=== PATIENT | male | born 1960 | race Caucasian/White ===

== ENCOUNTER 2019-02-08 05:57 | Inpatient (IN) | payer BC ==
[2019-02-08] MEDS ORDERED: ALBUTEROL 2.5 MG/3 ML NEB SOL ONE (06:19)
[2019-02-08] MEDS ORDERED: IPRATROPIUM BROM 0.5MG/2.5ML ONE (06:19)
[2019-02-08 06:28] LABS: Absolute Lymphocytes (CBC) 1.3 K/uL (0.7-4.9); Absolute Neutrophil 7.7 K/uL (1.8-8.0); Basophils % 0.7 % (0-1.3); Eosinophils % 1.9 % (0-4.4); Hematocrit 46.9 % (39.6-49.0); Lymphocytes % 12.5 % (15.3-44.8); MPV 9.8 fL (7.6-11.3); Monocytes % 10.1 % (3.3-12.3); RBC Red Blood Cell Count 5.12 M/uL (4.33-5.43)
[2019-02-08] MEDS ORDERED: NA CHLORIDE 0.9% 1,000 ML ONE (06:37)
[2019-02-08 06:46] LABS: Protime INR 1.11
[2019-02-08 06:50] LABS: ALT/SGPT 30 U/L (12-78); AST/SGOT 15 U/L (15-37); Albumin 3.5 g/dL (3.4-5.0); Alkaline Phosphatase 119 U/L (45-117); BUN Blood Urea Nitrogen 11 mg/dL (7-18); Bicarbonate 30 mmol/L (21-32); Bilirubin Direct 0.2 mg/dL (0-0.2); Bilirubin Total 0.7 mg/dL (0.2-1.0); CKMB Creatine Kinase MB 1.5 ng/mL (0.3-3.6); Creatine Phosphokinase 100 U/L (39-308); Glucose Level 270 mg/dL (74-106); Lipase 77 U/L (73-393); Potassium 4.2 mmol/L (3.5-5.1); Protein, Total 7.6 g/dL (6.4-8.2); Sodium Level 136 mmol/L (136-145); Troponin (Emerg Dept Use Only) < 0.02 ng/mL (0.0-0.045)
[2019-02-08] MEDS ORDERED: METHYLPREDNISOLONE 125 MG INJ ONE (07:36)
--- NOTE | 2019-02-08 08:33 | RAD REPORT ---
EXAM DESCRIPTION: Mirela Single View02/08/2019 6:26 am CLINICAL HISTORY: Cough COMPARISON: 2014 FINDINGS: Left upper lobe opacity suspected. The remainder of the lungs appear clear of acute infil trate The heart is normal size IMPRESSION: Left upper lobe opacity may represent pneumonia. This should be followed until it is elinor ar to help exclude a post obstructive process/underlying mass
--- NOTE | 2019-02-08 08:57 | ER ---
Nurse's Notes [facility] Name: Min Aly Age: 58 yrs Sex: Male : 1960 Arrival Date: 02/08/2019 Time: 05:58 Bed 5 Private MD: Diagnosis: Pneumonia, unspecified organism;Chronic obstructive pulmonary disease with (acute) exacerbation Presentation: 02/08 06:20 Presenting complaint: Patient states: SOB, productive cough since Friday. Transition of ak1 care: patient was not received from another setting of care. Onset of symptoms is unknown. Risk Assessment: Do you want to hurt yourself or someone else? Patient reports no desire to harm self or others. Care prior to arrival: None. 06:20 Method Of Arrival: Wheelchair ak1 06:20 Acuity: MARYBETH 2 ak1 Triage Assessment: 06:22 General: Appears distressed, uncomfortable, obese, Behavior is cooperative. Pain: ak1 Denies pain. EENT: No signs and/or symptoms were reported regarding the EENT system. Neuro: No deficits noted. Cardiovascular: Rhythm is sinus tachycardia. Respiratory: Reports shortness of breath cough that is productive. Respiratory: Onset: The symptoms/episode began/occurred Friday, the patient has mild shortness of breath. GI: No signs and/or symptoms were reported involving the gastrointestinal system. : No signs and/or symptoms were reported regarding the genitourinary system. Derm: No signs and/or symptoms reported regarding the dermatologic system. Musculoskeletal: No signs and/or symptoms reported regarding the musculoskeletal system. Historical: - Allergies: 06:22 No Known Allergies; ak1 - Home Meds: 06:22 Humira subcutaneous subcutaneous [Active]; Metformin Oral [Active]; Wellbutrin Oral ak1 [Active]; spariva [Active]; - PMHx: 06:22 COPD; Diabetes - NIDDM; ak1 - PSHx: 06:22 leg sx; ak1 - Immunization history:: Adult Immunizations unknown. - Social history:: Smoking status: Patient uses tobacco products, smokes one pack cigarettes per day. - Ebola Screening: : No symptoms or risks identified at this time. Screenin:39 Abuse screen: Denies threats or abuse. Denies injuries from another. Nutritional sv screening: No deficits noted. Tuberculosis screening: No symptoms or risk factors identified. Fall Risk None identified. Assessment: 07:15 General: Appears in no apparent distress. Behavior is calm, cooperative. Pain: Denies hb pain. Neuro: Level of Consciousness is awake, alert, obeys commands, Oriented to person, place, time, situation. Cardiovascular: Heart tones S1 S2 present Capillary refill < 3 seconds Patient's skin is warm and dry. Respiratory: Airway is patent Trachea midline Respiratory effort is even, Respiratory pattern is regular, symmetrical, on BIPAP Breath sounds are diminished bilaterally. GI: No signs and/or symptoms were reported involving the gastrointestinal system. : No signs and/or symptoms were reported regarding the genitourinary system. EENT: No signs and/or symptoms were reported regarding the EENT system. Derm: Skin is intact, is healthy with good turgor. Musculoskeletal: No signs and/or symptoms reported regarding the musculoskeletal system. 08:15 Reassessment: Patient appears in no apparent distress at this time. No changes from hb previously documented assessment. Patient and/or family updated on plan of care and expected duration. Pain level reassessed. 09:15 Reassessment: Patient appears in no apparent distress at this time. No changes from hb previously documented assessment. Patient and/or family updated on plan of care and expected duration. Pain level reassessed. BIPAP continues. 10:20 Reassessment: Patient appears in no apparent distress at this time. No changes from hb previously documented assessment. Patient and/or family updated on plan of care and expected duration. Pain level reassessed. BIPAP continues. 11:15 Reassessment: Patient appears in no apparent distress at this time. No changes from hb previously documented assessment. Patient and/or family updated on plan of care and expected duration. Pain level reassessed. Admission ordered, awaiting room assignment at this time. BIPAP continues. 12:15 Reassessment: Patient appears in no apparent distress at this time. No changes from hb previously documented assessment. Patient and/or family updated on plan of care and expected duration. Pain level reassessed. 12:41 Reassessment: Patient appears in no apparent distress at this time. pt and pt family sg updated on room assignment, Noelle RN to call back when available, pt and pt family stated understanding. Vital Signs: 06:19 BP 132 / 81; Pulse 107; Resp 26; Temp 98.(A); Pulse Ox 72% on R/A; Weight 134.26 kg ak1 (R); Height 6 ft. 3 in. (190.50 cm) (R); Pain 2/10; 07:38 BP 122 / 93; Pulse 86; Resp 24; Pulse Ox 99% on 40% BiPAP; sv 08:00 BP 104 / 79; Pulse 80; Resp 21; Pulse Ox 98% on 40% BiPAP; hb 09:00 BP 117 / 95; Pulse 80; Resp 22; Pulse Ox 100% on 40% BiPAP; hb 10:00 BP 120 / 78; Pulse 85; Resp 21; Pulse Ox 95% on 40% BiPAP; hb 11:00 BP 122 / 76; Pulse 84; Resp 21; Pulse Ox 96% on 40% BiPAP; hb 12:00 BP 124 / 77; Pulse 81; Resp 20; Pulse Ox 96% on 40% BiPAP; hb 12:58 BP 136 / 83; Pulse 78; Resp 21; Pulse Ox 97% on 40% BiPAP; hb 06:19 Body Mass Index 37.00 (134.26 kg, 190.50 cm) ak1 ED Course: 05:58 Patient arrived in ED. ds1 05:59 Mariam Crocker FNP-C is PHCP. kb 05:59 Troy Espinoza MD is Attending Physician. kb 06:15 Inserted saline lock: 18 gauge in right antecubital area, using aseptic technique. jd3 Blood collected. 06:21 Triage completed. ak1 06:22 Enmanuel Pang, RN is Primary Nurse. jd3 06:22 Arm band placed on Patient placed in an exam room, on a stretcher, on oxygen, on pulse ak1 oximetry, Patient notified of wait time. 06:24 X-ray completed. Portable x-ray completed in exam room. Patient tolerated procedure kw well. 06:25 Chest Single View XRAY In Process Unspecified. EDMS 07:07 Basic Metabolic Panel Sent. sv 07:07 Blood Culture Adult (2) Sent. sv 07:08 BIPAP Sent. sv 07:39 Patient has correct armband on for positive identification. Bed in low position. Call sv light in reach. Side rails up X2. school lunch monitor on. Pulse ox on. NIBP on. Head of bed elevated. 08:55 Melinda Spencer MD is Hospitalizing Provider. kb Administered Medications: 06:07 CANCELLED (Other Intervention Used): DuoNeb (3:1) (2.5 mg - 0.5 mg) 3 ml Nebulizer once kb 06:18 Drug: Albuterol 2.5 mg Route: Inhalation; jd3 07:15 Follow up: Response: No adverse reaction hb 06:18 Drug: AtroVENT Aerosol 0.5 mg Route: Inhalation; jd3 07:15 Follow up: Response: No adverse reaction hb 06:27 Drug: NS 0.9% 1000 ml Route: IV; Rate: 1000 ml; Site: right antecubital; jd3 07:33 Follow up: Response: No adverse reaction; IV Status: Completed infusion hb 07:33 Drug: SOLU-Medrol 125 mg Route: IVP; Site: right antecubital; hb 08:15 Follow up: Response: No adverse reaction hb 09:00 Drug: Rocephin 1 grams Route: IV; Rate: calculated rate; Site: right antecubital; hb 09:30 Follow up: Response: No adverse reaction; IV Status: Completed infusion hb 09:50 Drug: Zithromax 500 mg Route: IVPB; Infused Over: 1 hrs; Site: right antecubital; hb Outcome: 08:56 Decision to Hospitalize by Provider. kb 13:02 Admitted to accompanied by tech, family with patient, Report called to PAT Drake 13:02 Condition: stable 13:02 Instructed on the need for admit, safety practices, Demonstrated understanding of instructions. 13:52 Patient left the ED. ss Signatures: Dispatcher [employer] EDMS Mariam Crocker, HUMAN RESOURCES ANALYST-C HUMAN RESOURCES ANALYST-Kanwal Morales RN RN sv Gay, Steven, RN RN Kianna Salas dsRena Rodriguez RN RN ss Whitley, Kimberlee kw Krenek, Amber, RN RN akMacrina Stevenson RN RN Enmanuel Villegas RN RN jd3 Corrections: (The following items were deleted from the chart) 07:39 07:38 BP 122 / 93; Pulse 86bpm; Resp 24bpm; Pulse Ox 99%; sv sv
--- NOTE | 2019-02-08 08:57 | EDPHYS ---
Physician Documentation [facility] Name: Min Aly Age: 58 yrs Sex: Male : 1960 Arrival Date: 02/08/2019 Time: 05:58 Bed 5 Private MD: ED Physician Troy Espinoza HPI: 02/08 06:07 This 58 yrs old Male presents to ER via Unassigned with complaints of kb Breathing Difficulty, Cough. 06:07 The patient has shortness of breath at rest, and the patient has a history of COPD. kb Onset: The symptoms/episode began/occurred 4 day(s) ago. Duration: The symptoms are continuous. The patient's shortness of breath is aggravated by exertion, talking, is alleviated by nothing. Associated signs and symptoms: Pertinent positives: productive cough, fever, Pertinent negatives: chest pain, non-productive cough, diaphoresis, dizziness, hemoptysis, loss of consciousness, nausea, numbness in extremities, visual changes, vomiting. Severity of symptoms: At their worst the symptoms were moderate in the emergency department the symptoms are unchanged. The patient has experienced similar episodes in the past, chronically. The patient has not recently seen a physician. Pt reports he started having productive cough with green sputum, fever, and shortness of breath on Friday. Has gotten progressively worse since then. Pt has history of COPD and smokes a pack per day. Dyspnea worse on exertion. . Historical: - Allergies: 06:22 No Known Allergies; ak1 - Home Meds: 06:22 Humira subcutaneous subcutaneous [Active]; Metformin Oral [Active]; Wellbutrin Oral ak1 [Active]; spariva [Active]; - PMHx: 06:22 COPD; Diabetes - NIDDM; ak1 - PSHx: 06:22 leg sx; ak1 - Immunization history:: Adult Immunizations unknown. - Social history:: Smoking status: Patient uses tobacco products, smokes one pack cigarettes per day. - Ebola Screening: : No symptoms or risks identified at this time. ROS: 06:09 ENT: Negative for injury, pain, and discharge, Neck: Negative for injury, pain, and kb swelling, Cardiovascular: Negative for chest pain, palpitations, and edema, Abdomen/GI: Negative for abdominal pain, nausea, vomiting, diarrhea, and constipation, Back: Negative for injury and pain, MS/Extremity: Negative for injury and deformity, Skin: Negative for injury, rash, and discoloration, Neuro: Negative for headache, weakness, numbness, tingling, and seizure. 06:09 Constitutional: Positive for fever. 06:09 Respiratory: Positive for cough, dyspnea on exertion, shortness of breath, at rest. Negative for hemoptysis, orthopnea, pleurisy, wheezing. Exam: 06:09 Head/Face: Normocephalic, atraumatic. ENT: Nares patent. No nasal discharge, no kb septal abnormalities noted. Tympanic membranes are normal and external auditory canals are clear. Oropharynx with no redness, swelling, or masses, exudates, or evidence of obstruction, uvula midline. Mucous membranes moist. Neck: Trachea midline, no thyromegaly or masses palpated, and no cervical lymphadenopathy. Supple, full range of motion without nuchal rigidity, or vertebral point tenderness. No Meningismus. Chest/axilla: Normal chest wall appearance and motion. Nontender with no deformity. No lesions are appreciated. Cardiovascular: Regular rate and rhythm with a normal S1 and S2. No gallops, murmurs, or rubs. Normal PMI, no JVD. No pulse deficits. Abdomen/GI: Soft, non-tender, with normal bowel sounds. No distension or tympany. No guarding or rebound. No evidence of tenderness throughout. Skin: Warm, dry with normal turgor. Normal color with no rashes, no lesions, and no evidence of cellulitis. MS/ Extremity: Pulses equal, no cyanosis. Neurovascular intact. Full, normal range of motion. Neuro: Awake and alert, GCS 15, oriented to person, place, time, and situation. Cranial nerves II-XII grossly intact. Motor strength 5/5 in all extremities. Sensory grossly intact. Cerebellar exam normal. Normal gait. 06:09 Constitutional: The patient appears alert, awake, in obvious distress, moderately distressed. 06:09 Respiratory: moderate respiratory distress is noted, Respirations: labored breathing, that is moderate, shallow respirations, that is moderate, tachypnea, that is moderate, Breath sounds: decreased breath sounds, that are moderate, are located in both bases, wheezing: expiratory that is mild, is heard in the left lower lobe and right lower lobe, mild wheezing noted to bilateral anterior lung reyez. shallow respirations and tachypnea noted. . 06:55 ECG was reviewed by the Attending Physician. Vital Signs: 06:19 BP 132 / 81; Pulse 107; Resp 26; Temp 98.(A); Pulse Ox 72% on R/A; Weight 134.26 kg ak1 (R); Height 6 ft. 3 in. (190.50 cm) (R); Pain 2/10; 07:38 BP 122 / 93; Pulse 86; Resp 24; Pulse Ox 99% on 40% BiPAP; sv 08:00 BP 104 / 79; Pulse 80; Resp 21; Pulse Ox 98% on 40% BiPAP; hb 09:00 BP 117 / 95; Pulse 80; Resp 22; Pulse Ox 100% on 40% BiPAP; hb 10:00 BP 120 / 78; Pulse 85; Resp 21; Pulse Ox 95% on 40% BiPAP; hb 11:00 BP 122 / 76; Pulse 84; Resp 21; Pulse Ox 96% on 40% BiPAP; hb 12:00 BP 124 / 77; Pulse 81; Resp 20; Pulse Ox 96% on 40% BiPAP; hb 12:58 BP 136 / 83; Pulse 78; Resp 21; Pulse Ox 97% on 40% BiPAP; hb 06:19 Body Mass Index 37.00 (134.26 kg, 190.50 cm) ak1 MDM: 05:59 Patient medically screened. kb 06:13 Data reviewed: vital signs, nurses notes. Data interpreted: Pulse oximetry: on room air kb is 75 %. Interpretation: hypoxia. Plan: will initiate a nebulizer treatment. ED course: Pt being placed on Bipap at this time. . 07:06 ED course: Pt feeling better on bipap, oxygen 98% . kb 07:25 Counseling: I had a detailed discussion with the patient and/or guardian regarding: the historical points, exam findings, and any diagnostic results supporting the discharge/admit diagnosis, lab results, radiology results, the need for further work-up and treatment in the hospital. 09:10 Physician consultation: Melinda Spencer MD was called at 09:10, regarding admission, to the telemetry unit. patient's condition, and will see patient in ED, shortly. 02/08 06:06 Order name: Basic Metabolic Panel 02/08 06:06 Order name: Blood Culture Adult (2) 02/08 06:06 Order name: CBC with Diff; Complete Time: 06:48 kb 02/08 06:06 Order name: Ckmb; Complete Time: 06:52 kb 02/08 06:06 Order name: CPK; Complete Time: 06:52 kb 02/08 06:06 Order name: Lactate; Complete Time: 07:16 kb 02/08 06:06 Order name: LFT's; Complete Time: 06:52 kb 02/08 06:06 Order name: Lipase; Complete Time: 06:52 kb 02/08 06:06 Order name: Procalcitonin; Complete Time: 07:12 kb 02/08 06:06 Order name: Protime (+inr); Complete Time: 06:48 kb 02/08 06:06 Order name: Ptt, Activated; Complete Time: 06:48 kb 02/08 06:06 Order name: Troponin (emerg Dept Use Only); Complete Time: 06:52 kb 02/08 06:06 Order name: Urine Microscopic Only kb 02/08 06:06 Order name: Flu; Complete Time: 06:48 kb 02/08 06:05 Order name: BIPAP kb 02/08 06:06 Order name: Chest Single View XRAY; Complete Time: 08:36 kb 02/08 06:06 Order name: Cardiac monitoring; Complete Time: 06:51 kb 02/08 06:06 Order name: EKG - Nurse/Tech; Complete Time: 06:51 kb 02/08 06:06 Order name: IV Saline Lock - Large Bore; Complete Time: 06:51 kb 02/08 06:07 Order name: Basic Metabolic Panel; Complete Time: 06:52 EDMS 02/08 06:07 Order name: Blood Culture EDMS 02/08 06:59 Order name: EKG; Complete Time: 06:59 jd3 02/08 10:47 Order name: ABG Arterial Blood Gas; Complete Time: 10:56 EDMS 02/08 06:06 Order name: Labs collected and sent; Complete Time: 06:51 kb 02/08 06:06 Order name: O2 Per Protocol; Complete Time: 06:51 kb 02/08 06:06 Order name: O2 Sat Monitoring; Complete Time: 06:51 kb EC:55 Rate is 90 beats/min. Rhythm is regular, Normal Sinus Rhythm. UT interval is normal at kb 154 msec. QRS interval is normal at 82 msec. QT interval is normal at 358 msec. Interpreted by me. Reviewed by me. Administered Medications: 06:07 CANCELLED (Other Intervention Used): DuoNeb (3:1) (2.5 mg - 0.5 mg) 3 ml Nebulizer once kb 06:18 Drug: Albuterol 2.5 mg Route: Inhalation; jd3 07:15 Follow up: Response: No adverse reaction hb 06:18 Drug: AtroVENT Aerosol 0.5 mg Route: Inhalation; jd3 07:15 Follow up: Response: No adverse reaction hb 06:27 Drug: NS 0.9% 1000 ml Route: IV; Rate: 1000 ml; Site: right antecubital; jd3 07:33 Follow up: Response: No adverse reaction; IV Status: Completed infusion hb 07:33 Drug: SOLU-Medrol 125 mg Route: IVP; Site: right antecubital; hb 08:15 Follow up: Response: No adverse reaction hb 09:00 Drug: Rocephin 1 grams Route: IV; Rate: calculated rate; Site: right antecubital; hb 09:30 Follow up: Response: No adverse reaction; IV Status: Completed infusion hb 09:50 Drug: Zithromax 500 mg Route: IVPB; Infused Over: 1 hrs; Site: right antecubital; hb Disposition: 02/08/19 08:56 Hospitalization ordered by Melinda Spencer for Inpatient Admission. Preliminary diagnosis are Chronic obstructive pulmonary disease with (acute) exacerbation, Pneumonia, unspecified organism. - Bed requested for Telemetry/MedSurg (Inpatient). - Status is Inpatient Admission. ss - Condition is Stable. - Problem is new. - Symptoms have improved. UTI on Admission? No Addendum: 02/12/2019 19:00 Co-signature as Attending Physician, Troy Espinoza MD. shefali mckeon Signatures: Dispatcher [employer] Mariam Stone FNP-C FNP-Georgina Wong, RN RN Troy Nino MD MD pkl Smirch, Shelby, RN RN Judy Seals RN RN ak1 Macrina Marte RN RN Enmanuel Pang RN RN jd3 Corrections: (The following items were deleted from the chart) 02/08 06:07 06:07 DuoNeb (3:1) (2.5 mg - 0.5 mg) 3 ml Nebulizer once ordered. kb kb 12:26 08:56 Hospitalization Ordered by Melinda Spencer MD for Inpatient Admission. Preliminary dw diagnosis is Chronic obstructive pulmonary disease with (acute) exacerbationPneumonia, unspecified organism. Bed requested for Telemetry/MedSurg (Inpatient). Status is Inpatient Admission. Condition is Stable. Problem is new. Symptoms have improved. UTI on Admission? No. kb 13:52 12:26 02/08/2019 08:56 Hospitalization Ordered by Melinda Spencer MD for Inpatient ss Admission. Preliminary diagnosis is Chronic obstructive pulmonary disease with (acute) exacerbationPneumonia, unspecified organism. Bed requested for Telemetry/MedSurg (Inpatient). Status is Inpatient Admission. Condition is Stable. Problem is new. Symptoms have improved. UTI on Admission? No. dw
[2019-02-08] MEDS ORDERED: AZITHROMYCIN IV 500 MG in NA CHLORIDE 0.9% 250 ML IVPB ONE (09:45)
[2019-02-08 10:47] LABS: Arterial Blood Carboxyhemoglob 1.5 % (0-1.5); Blood Gas Oxyhemoglobin 93.5 % (94-97); Blood O2 Saturation 95.9 % (92-98.5)
[2019-02-08] MEDS: METHYLPREDNISOLONE 125 MG INJ IV SCH ×2 (12:00→17:38)
[2019-02-08 14:26] LABS: Urine Blood NEGATIVE (NEG); Urine Glucose 2+ (NEG); Urine Protein 2+ (NEG); Urine Specific Gravity >1.030 (1.005-1.030); Urine pH 5.5 (5.0-7.0)
[2019-02-08 14:43] VITALS: BMI 37.0
[2019-02-08] MEDS ORDERED: ALBUTEROL 2.5 MG/3 ML NEB SOL NEB PRN (14:45)
[2019-02-08] MEDS: INSULIN -REGULAR HUMAN 50 UNIT/0.5 ML ML SQ SCH ×3 (14:45→21:00)
[2019-02-08 15:17] LABS: Urine Bacteria <20 /HPF (NONE SEEN); Urine Culture Reflex Order NOT NEEDED; Urine Mucus 1+ /HPF (NONE SEEN); Urine RBC <5 /HPF (NONE SEEN)
[2019-02-08] MEDS ORDERED: PNEUMOCOCCAL VACCINE 0.5 ML IMVAC ONE (16:00)
[2019-02-09] MEDS: METHYLPREDNISOLONE 125 MG INJ IV SCH ×2 (00:04→06:00)
[2019-02-09 04:41] LABS: Absolute Lymphocytes (CBC) 1.3 K/uL (0.7-4.9); Absolute Monocytes 0.6 K/uL (0.1-1.3); Absolute Neutrophil 8.1 K/uL (1.8-8.0); Basophils % 0.2 % (0-1.3); Hematocrit 45.3 % (39.6-49.0); Lymphocytes % 12.9 % (15.3-44.8); MPV 9.9 fL (7.6-11.3); Monocytes % 5.8 % (3.3-12.3); RBC Red Blood Cell Count 4.87 M/uL (4.33-5.43)
--- NOTE | 2019-02-09 04:42 | HP ---
Date of Admission: 02/08/2019 Chief Complaint: The patient complaining of shortness of breath and cough. History Of Present Illness: The patient is 58-year-old man with past medical history of COPD and yuniel betes, presented to the emergency room with shortness of breath and cough productive of greenish sput um that started 4 days ago associated with fever and chills. The patient was having also problems wi th wheezing, sweating, and chills. The patient denied chest pain, palpitation, change in urinary or bowel habits, headaches, dizziness, or any other complaints. The patient had an x-ray in emergency room which showed left lower lobe pneumonia, and the patient is admitted for COPD exacerbation due to pneumonia. Allergies: NO KNOWN MEDICAL ALLERGIES. Home Medications: Insulin, metformin, Wellbutrin, Spiriva. Past Medical History: As above. Past Surgical History: Leg surgery. Social History: The patient is active smoker, one pack per day, quit drinking, denied any illicit dr ug use. Review of Systems: Negative except what mentioned in the HPI. Physical Examination: VITAL SIGNS: O2 saturation 95 with BIPAP, temperature of 99.2, pulse rate of 95, blood pressure 110/ 65. GENERAL: The patient is awake, alert, oriented x3, on BIPAP. HEENT: Atraumatic PERRLA. Mucous membrane moist. Sclerae nonicteric. NECK: Supple. No JVD. RESPIRATORY: Bilateral wheezing and crackles. CARDIOVASCULAR: Regular rate and rhythm. No murmurs. Normal S1 and S2. GI: Normal bowel sounds. Abdomen is soft and nontender. Bowel sounds positive. EXTREMITIES: No edema, cyanosis, or clubbing. NEUROLOGIC: No focal weakness. SKIN: No rash. Laboratory Findings: CBC, white blood cell count of 10.3, hemoglobin of 15.9, hematocrit of 46.9, pl atelets of 197. Blood gas; pH of 7.32, pCO2 of 58, pO2 of 86 and HCO3 of 28. Sodium of 136, potassi um of 4.2, chloride 100, BUN of 11, creatinine of 0.8, glucose of 270. Lactic acid 1. Imaging: Chest x-ray showing left upper lobe pneumonia. Assessment And Plan: 1.Chronic obstructive pulmonary disease exacerbation due to pneumonia. a.IV antibiotic, Rocephin and Zithromax. b.Pulmonary consult, Dr. Fitzgerald. c.DuoNeb q.6 hours. d.BIPAP. e.Solu-Medrol IV 40 q.6 hours. f.Cultures. 2.Diabetes and hypertension. Continue other home meds for other comorbidities. 3.Deep venous thrombosis prophylaxis. THOR Voice ID: [id number]
[2019-02-09 04:59] LABS: ALT/SGPT 31 U/L (12-78); AST/SGOT 11 U/L (15-37); Albumin 3.2 g/dL (3.4-5.0); Alkaline Phosphatase 115 U/L (45-117); BUN Blood Urea Nitrogen 19 mg/dL (7-18); Bicarbonate 32 mmol/L (21-32); Bilirubin Total 0.3 mg/dL (0.2-1.0); Glucose Level 314 mg/dL (74-106); Magnesium 2.4 mg/dL (1.8-2.4); Phosphorus 2.7 mg/dL (2.5-4.9); Potassium 4.5 mmol/L (3.5-5.1); Protein, Total 7.2 g/dL (6.4-8.2); Sodium Level 140 mmol/L (136-145)
--- NOTE | 2019-02-09 08:00 | P.CNS ---
Date of Consult: 02/09/19 Chief Complaint: Shortness of breath History of Present Illness: Patient is 58 years of age with a history of COPD active smoker admitted with 4 day history of increasing cough shortness of breath productive sputum is currently on BiPAP patient takes Spiriva Allergies No Known Drug Allergies Allergy (Verified 02/08/19 18:28) Unknown Home Medications: Adalimumab [Humira 40 MG/0.8 ML] 40 mg SQ SEECOM 02/08/19 Albuterol Inhaler [Ventolin Inhaler] 2 puff IH Q6H PRN 02/08/19 Bupropion *Xl* [Wellbutrin XL] 300 mg PO DAILY 02/08/19 Escitalopram [Lexapro] 20 mg PO DAILY 02/08/19 Metformin ER [Glucophage ER] 1,000 mg PO BID 02/08/19 Tiotropium [place] [Spiriva] 1 spray IH DAILY 02/08/19 - Past Medical/Surgical History Diabetic: Yes -: COPD -: NIDDM -: PSORIASIS -: HEPATITIS C -: TONSILLECTOMY -: METAL PLATE TO RIGHT LEG D/T FRACTURE -: HEMORRHOIDECTOMY - Social History Smoking Status: Current every day smoker Alcohol use: No CD- Drugs: No Caffeine use: Yes Place of Residence: Home Review of Systems General: Weakness Respiratory: Cough, Shortness of Breath Physical Examination Temp Pulse Resp BP Pulse Ox 98.0 F 93 H 19 129/79 93 02/09/19 04:00 02/09/19 04:00 02/09/19 04:00 02/09/19 04:00 02/09/19 04:00 General: Alert, Oriented x3, Mild distress Respiratory: Expiratory wheezes Cardiovascular: No edema, Normal S1 S2 Gastrointestinal: Normal bowel sounds, Soft and benign Musculoskeletal: No clubbing, No swelling - Problems (1) COPD exacerbation Current Visit: Yes Status: Acute Plan: Patient is 58 years of age with a history of COPD recurrent episodes when he goes fishing and during allergy season has been sick for the past 3 or 4 days worsening shortness of breath no evidence of pneumonia is hypoxic hypercapnic pro calcitonin level is negative white count normal I agree is admitted with the exacerbation of COPD I have Consulled pt not to smoke. He probably has underlying severe COPD needs to follow up with me patient's inhaler niece to be upgraded to a combination I recommend trilogy change to p.o. antibiotics steroids possible discharge tomorrow
[2019-02-09] MEDS: INSULIN -REGULAR HUMAN 50 UNIT/0.5 ML ML SQ SCH ×4 (08:29→21:02)
[2019-02-09] MEDS: ENOXAPARIN 40 MG/0.4 ML SQ SCH (08:29)
[2019-02-09] MEDS: ARFORMOTEROL TARTRATE 15 MCG/2 ML VIAL.NEB NEB SCH ×2 (08:32→20:00)
[2019-02-09] MEDS: IPRATROPIUM BROM 0.5MG/2.5ML NEB SCH ×3 (08:32→20:00)
[2019-02-09] MEDS ORDERED: CEFTRIAXONE/SWI 1gm 1 GM/10 ML SYR IV SCH (09:00)
[2019-02-09] MEDS ORDERED: AZITHROMYCIN IV 250 MG in NA CHLORIDE 0.9% 250 ML IVPB SCH (09:00)
[2019-02-09] MEDS: CEFUROXIME 250 MG TAB PO SCH ×2 (10:04→21:01)
[2019-02-09] MEDS: predniSONE 20 MG TAB PO SCH ×2 (10:05→21:02)
[2019-02-09] MEDS ORDERED: GLUCAGON 1 MG/VIAL IM PRN (14:53)
[2019-02-09] MEDS ORDERED: D50W 25 GM/50 ML SYRINGE IV PRN (14:53)
[2019-02-09] MEDS ORDERED: ALBUTEROL 2.5 MG/3 ML NEB SOL NEB PRN (15:00)
--- NOTE | 2019-02-09 17:09 | P.PN ---
Subjective Date of Service: 02/09/19 Chief Complaint: Shortness of breath copd exacerbation due to pna nebulizers bipap Physical Examination - Vital Signs Temperature: 97.8 F Blood Pressure: 135/70 Pulse: 87 Respirations: 24 Pulse Ox (%): 91 Assessment And Plan - Plan Chronic obstructive pulmonary disease exacerbation due to pneumonia. IV antibiotic, Rocephin and Zithromax. Pulmonary consult, Dr. Fitzgerald. DuoNeb q.6 hours. BIPAP. Solu-Medrol IV tapering f/up Cultures. Continue other home meds for other comorbidities. Deep venous thrombosis prophylaxis. Discharge Plan: Home Plan to discharge in: 24 Hours
[2019-02-10] MEDS: IPRATROPIUM BROM 0.5MG/2.5ML NEB SCH ×3 (02:00→13:13)
[2019-02-10] MEDS: ENOXAPARIN 40 MG/0.4 ML SQ SCH (08:09)
[2019-02-10] MEDS: predniSONE 20 MG TAB PO SCH (08:09)
[2019-02-10] MEDS: CEFUROXIME 250 MG TAB PO SCH (08:10)
[2019-02-10] MEDS: ARFORMOTEROL TARTRATE 15 MCG/2 ML VIAL.NEB NEB SCH (08:26)
--- NOTE | 2019-02-10 08:33 | P.PN ---
Subjective Date of Service: 02/10/19 Chief Complaint: COPD exacerbation Subjective: Improving (Patient is doing much better shortness of breath has improved his sats around 90% for 2) Review of Systems General: Weakness Respiratory: Shortness of Breath Physical Examination - Vital Signs Temperature: 97.2 F Blood Pressure: 115/81 Pulse: 72 Respirations: 19 Pulse Ox (%): 95 - Physical Exam General: Alert, In no apparent distress, Oriented x3 Respiratory: Expiratory wheezes Cardiovascular: No edema, Normal pulses Assessment & Plan - Problems (Diagnosis) (1) COPD exacerbation Current Visit: Yes Status: Acute Plan: Patient admitted with COPD exacerbation of ordered room-air ABGs is room-air sat is only 88% advised him not to smoke patient needs to be started onTrelegy possible discharge today on prednisone 10 mg twice a day no evidence of sepsis patient is not at risk for any resistant infections can go home also on cefuroxime 100 mg twice a day for 7 days for the possibility of pneumonia in the left upper lobe follow up with me in 2 weeks
[2019-02-10] MEDS: INSULIN -REGULAR HUMAN 50 UNIT/0.5 ML ML SQ SCH ×3 (08:35→17:16)
[2019-02-10 10:21] LABS: Arterial Blood Carboxyhemoglob 1.4 % (0-1.5); Blood Gas Oxyhemoglobin 82.4 % (94-97); Blood O2 Saturation 84.1 % (92-98.5)
[2019-02-10] MEDS ORDERED: ADALIMUMAB 40 MG SQ SCH (11:00)
--- NOTE | 2019-02-10 11:49 | RAD REPORT ---
EXAM DESCRIPTION: RAD - Chest Pa And Lat (2 Views) - 02/10/2019 11:38 am CLINICAL HISTORY: follow up pneumonia Chest pain. COMPARISON: Chest Single View dated 02/08/2019; CHEST PA AND LAT 2 VIEW dated 09/28/2015; CHEST PA AND LAT 2 VIEW dated 05/23/2015 FINDINGS: Mild linear subsegmental atelectasis is seen in the left base. The lungs are otherwise mil dly hyperexpanded but clear. The heart is upper limit normal in size. No displaced fractures.
--- NOTE | 2019-02-10 12:13 | P.PN ---
Subjective Date of Service: 02/10/19 Chief Complaint: COPD exacerbation Subjective: Improving (This patient is doing much better shortness of breath has improved wants to go home but his very hypoxic) Review of Systems Respiratory: Shortness of Breath Physical Examination - Vital Signs Temperature: 97.2 F Blood Pressure: 115/81 Pulse: 72 Respirations: 19 Pulse Ox (%): 95 - Physical Exam General: Alert, Oriented x3 Respiratory: Expiratory wheezes Cardiovascular: No edema, Regular rate/rhythm Assessment & Plan - Problems (Diagnosis) (1) COPD exacerbation Current Visit: Yes Status: Acute Plan: Patient is 58 years of age admitted with COPD exacerbation he has improved subjectively although his very hypoxic confirmed by blood gases patient is hypoxic hypercapnic patient can be discharged home on trilogy and prednisone advice to quit smoking follow-up with me in 2 weeks of also ordered in some antibiotics
--- NOTE | 2019-02-10 14:25 | P.DS ---
Admission Date: 02/08/19 Discharge Date: 02/10/19 Primary Care Provider: Dr. Yeager Disposition: ROUTINE DISCHARGE Discharge Condition: GOOD Reason for Admission: COPD exacerbation Consultations: Pulmonary-Dr. Fitzgerald Procedures: CXR: FINDINGS: Mild linear subsegmental atelectasis is seen in the left base. The lungs are otherwise mildly hyperexpanded but clear. The heart is upper limit normal in size. No displaced fractures. Medical Problem List: Shortness of breath secondary to COPD exacerbation with possible left upper lobe pneumonia with noted hypoxia and hypercapnia requiring home oxygen at discharge Depression with anxiety Diabetes mellitus type 2 Obesity, BMI 37 Brief History of Present Illness: 58-year-old male presented to emergency room with shortness of breath. Patient found to have COPD exacerbation with possible pneumonia. Patient was admitted for further evaluation and treatment. Patient required BiPAP. Hospital Course: Patient presented with COPD exacerbation with possible left upper lobe pneumonia. Hypoxia and hypercapnia were noted. Patient with chronic COPD. Patient seen and evaluated by pulmonology. Patient required BiPAP in the hospital. This was weaned off to oxygen per nasal cannula. At discharge patient requires home oxygen. Home oxygen to be arranged prior to discharge to maintain sats above 90%. COPD chronic and stable at discharge. At discharge patient will continue with steroid Dosepak, Trelegy 1 puff daily and Pro air 2 puffs 3 times a day as needed for shortness of breath. Patient will also continue with Ceftin 500 mg 1 pill twice daily for 7 days. Patient will follow up with pulmonology in 1 week to follow up this hospitalization. Patient to maintain sats above 90%. Patient may need to limit activity. Recommend to recheck chest x-ray in 2-4 weeks to monitor resolution of the pneumonia. Patient with depression and anxiety. Patient will continue with his current medications of Wellbutrin and Lexapro. Patient with diabetes mellitus type 2. Patient will continue with metformin 1000 mg 1 pill twice daily. Recommend to maintain blood sugars less 140 fasting and less than 200 after meals. Further adjustment can be done by his PCP. Patient may require additional medication if blood sugars remain above 200. Patient with obesity. Lifestyle modification education will be provided. Vital Signs/Physical Exam: Temp Pulse Resp BP Pulse Ox 97.2 F 72 19 115/81 95 02/10/19 12:13 02/10/19 12:13 02/10/19 12:13 02/10/19 12:13 02/10/19 12:13 General: Alert, In no apparent distress, Oriented x3, Cooperative HEENT: Atraumatic Neck: Supple Respiratory: Expiratory wheezes, Inspiratory wheezes, Other (Improved aeration bilateral) Cardiovascular: Normal pulses, Regular rate/rhythm Gastrointestinal: Normal bowel sounds, Soft and benign, Non-distended, No tenderness, No masses, No rebound, No guarding Musculoskeletal: No erythema, No tenderness, No warmth Integumentary: No tenderness/swelling, No erythema, No warmth, No cyanosis Neurological: Normal speech, Normal strength at 5/5 x4 extr, Normal tone, Normal affect Laboratory Data at Discharge: WBC 9.9 K/uL (4.3-10.9) 02/09/19 03:41 Hgb 14.6 g/dL (13.6-17.9) 02/09/19 03:41 Hct 45.3 % (39.6-49.0) 02/09/19 03:41 Plt Count 188 K/uL (152-406) 02/09/19 03:41 PT 13.0 SECONDS (9.5-12.5) H 02/08/19 06:15 INR 1.11 02/08/19 06:15 APTT 29.3 SECONDS (24.3-36.9) 02/08/19 06:15 Sodium 140 mmol/L (136-145) 02/09/19 03:41 Potassium 4.5 mmol/L (3.5-5.1) 02/09/19 03:41 BUN 19 mg/dL (7-18) H 02/09/19 03:41 Creatinine 0.85 mg/dL (0.55-1.3) 02/09/19 03:41 Glucose 314 mg/dL (74-106) H 02/09/19 03:41 Phosphorus 2.7 mg/dL (2.5-4.9) 02/09/19 03:41 Magnesium 2.4 mg/dL (1.8-2.4) 02/09/19 03:41 Total Bilirubin 0.3 mg/dL (0.2-1.0) 02/09/19 03:41 AST 11 U/L (15-37) L 02/09/19 03:41 ALT 31 U/L (12-78) 04/02/19 03:41 Alkaline Phosphatase 115 U/L (45-117) 02/09/19 03:41 Lipase 77 U/L (73-393) 02/08/19 06:15 Home Medications: Adalimumab [Humira 40 MG/0.8 ML*] 40 mg SQ SEECOM 02/08/19 Bupropion *Xl* [Wellbutrin XL*] 300 mg PO DAILY 02/08/19 Escitalopram [Lexapro*] 20 mg PO DAILY 02/08/19 Metformin ER [Glucophage ER*] 1,000 mg PO BID 02/08/19 Albuterol Inhaler [Ventolin Inhaler*] 2 puff IH Q6H PRN #1 hfa.aer.ad 02/10/19 Cefuroxime [Ceftin*] 500 mg PO BID #28 tab 02/10/19 Fluticasone/Umeclidin/Vilanter [Trelegy Ellipta 100-62.5-25] 1 each IH DAILY #1 blst.w.dev 02/10/19 Prednisone [Sterapred Ds] 10 mg PO BID #20 tab.ds.pk 02/10/19 New Medications: Albuterol Inhaler [Ventolin Inhaler*] 2 puff IH Q6H PRN #1 hfa.aer.ad PRN Reason: Shortness Of Breath Cefuroxime [Ceftin*] 500 mg PO BID #28 tab Fluticasone/Umeclidin/Vilanter [Trelegy Ellipta 100-62.5-25] 1 each IH DAILY #1 blst.w.dev Prednisone [Sterapred Ds] 10 mg PO BID #20 tab.ds.pk Patient Discharge Instructions: 1. Patient will need to follow up his PCP-Dr. Yeager in 1 week to follow up this hospitalization. 2. Patient presented with COPD exacerbation with possible left upper lobe pneumonia. Patient with chronic COPD. Patient seen and evaluated by pulmonology. Patient required BiPAP in the hospital. This was weaned off to oxygen per nasal cannula. At discharge patient requires home oxygen. Home oxygen to be arranged prior to discharge to maintain sats above 90%. COPD stable at this time. At discharge patient will continue with steroid Dosepak, Trelegy 1 puff daily and Pro air 2 puffs 3 times a day as needed for shortness of breath. Patient will also continue with Ceftin 500 mg 1 pill twice daily for 7 days. Patient will follow up with pulmonology in 1 week to follow up this hospitalization. Patient to maintain sats above 90%. Patient may need to limit activity. Recommend to recheck chest x-ray in 2-4 weeks to monitor resolution of the pneumonia. 3. Patient with depression and anxiety. Patient will continue with his current medications of Wellbutrin and Lexapro. 4. Patient with diabetes mellitus type 2. Patient will continue with metformin 1000 mg 1 pill twice daily. Recommend to maintain blood sugars less 140 fasting and less than 200 after meals. Further adjustment can be done by his PCP. Patient may require additional medication if blood sugars remain above 200. Diet: ADA Activity: Ad emani Followup: Paul Fitzgerald MD [ACTIVE - CAN ADMIT] - (call to schedule follow up appointment) Time spent managing pt's care (in minutes): 55
[2019-02-10 17:51] VITALS: O2SAT 91
[2019-02-10 19:11] VITALS: BP 122/85; TEMP 98.9
[2019-02-10] MEDS ORDERED: METFORMIN ER 500 MG TAB PO SCH (21:00)
[2019-02-11] MEDS ORDERED: BUPROPION HCL XL 150 MG TAB PO SCH (09:00)
[2019-02-11] MEDS ORDERED: ESCITALOPRAM 20 MG TAB PO SCH (09:00)
--- NOTE | 2019-02-16 11:01 | EKG ---
Test Date: 2019-02-08 Test Time: 06:33:13 Oral Surgeon: NUNU MEASUREMENT RESULTS: Intervals: Rate: 90 NH: 154 QRSD: 82 QT: 358 QTc: 437 [place]: P: 67 NH: 154 QRS: 106 T: 84 INTERPRETIVE STATEMENTS: Normal sinus rhythm Rightward axis Borderline ECG Compared to ECG 12/04/2007 03:26:36 Right-axis deviation now present Electronically Signed On 02-08-19 12:01:19 CDT by Ry Manuel
== END 2019-02-10 17:25 | disposition home or self-care (01) | DRG 190 ==
LOC: ER 05:57 → 4TH 14:20
PROVIDERS: ADMIT Internal Medicine; ATTEND Internal Medicine
PROC: 5A09457 Assistance with Respiratory Ventilation, 24-96 Consecutive Hours, Continuous Positive Airway Pressure (ICD-10-PCS; principal; 2019-02-08)
DX: J44.0 Chronic obstructive pulmonary disease with (acute) lower respiratory infection (principal); J18.9 Pneumonia, unspecified organism; J44.1 Chronic obstructive pulmonary disease with (acute) exacerbation; E11.9 Type 2 diabetes mellitus without complications; I10 Essential (primary) hypertension; F17.210 Nicotine dependence, cigarettes, uncomplicated; R09.02 Hypoxemia; R06.89 Other abnormalities of breathing; F41.8 Other specified anxiety disorders; E66.9 Obesity, unspecified; Z68.37 Body mass index [BMI] 37.0-37.9, adult
CPT/HCPCS: 36415; 71045; 71046; 80048; 80053; 80076; 81003; 81015; 82550; 82553; 82805; 82962; 83036; 83605; 83690; 83735; 84100; 84145; 84484; 85025; 85610; 85730; 87040; 87070; 87205; 87804; 93005; 94640; 94660; 94760; 96361; 96365; 96375; 99285; J0456; J1650; J2930; J7030; J7512; J7605

== ENCOUNTER 2020-08-23 06:05 | Day surgery (SDC) | payer BC ==
--- NOTE | 2020-08-17 13:24 | RAD REPORT ---
EXAM DESCRIPTION: Mirela Courtney (2 Views)08/17/2020 1:15 pm CLINICAL HISTORY: Preop for shoulder surgery COMPARISON: 2019 FINDINGS: The lungs appear clear of acute infiltrate. The heart is normal size IMPRESSION: No acute abnormalities displayed
[2020-08-17 13:54] LABS: Potassium 4.4 mmol/L (3.5-5.1)
[2020-08-17 14:09] LABS: Absolute Lymphocytes (CBC) 1.8 K/uL (0.7-4.9); Basophils % 0.9 % (0-1.3); Hematocrit 52.6 % (39.6-49.0); Lymphocytes % 15.8 % (15.3-44.8); MPV 9.9 fL (7.6-11.3); Protime INR 0.92; RBC Red Blood Cell Count 5.57 M/uL (4.33-5.43)
--- OUTSIDE RECORDS SUMMARY | 2020-08-23 06:09 | XMS REPORT ---
:1960 Author Organization [facility] Address [address], [address] [place] [address] Care Team Providers Name Role Phone Teodoro Barber Unavailable [phone] PROBLEMS Type Condition ICD9-CM [id number] Onset Condition SNOMED Code Notes Code Code Dates Status Problem Nontraumatic M75.121 Active 9181354384533710 complete tear of right rotator cuff ALLERGIES No Known Allergies ENCOUNTERS from 1960 to 2020-08-21 Encounter Location Date Provider Diagnosis [facility] [address] Aug, Teodoro Barber Pain in joint of [facility] [address] [place], [place] M[address] ; [id number] Nontraumatic co mplete tear of right r otator cuff M75.121 ; Bicipital tendi nitis of right should er M75.21 ; Subacr omial bursitis of rig ht shoulder joint M75.51 and Impingement syndrome of rig ht shoulder M75.41 IMMUNIZATIONS Vaccine Route Administration Date Status Bupivicaine Elizabeth Unknown Jun 13, 2020 Administered Kenalog (Triamcinolone) Unknown Jun 13, 2020 Administ ered SOCIAL HISTORY Tobacco Use: Social History Observation Description Date Details (start date - stop date) Current Smoker Sex Assigned At : Social History Observation Description Sex Assigned At Unknown Alcohol Screen Question Answer Notes Did you have a drink containing alcohol in Yes the past year? Points 4 Interpretation Positive How often did you have 6 or more drinks on Never (0 points) one occasion in the past year? How many drinks did you have on a typical 3 or 4 (1 point) day when you were drinking in the past year? How often did you have a drink containing Two to three times per week (3 alcohol in the past year? points) Tobacco Use/Smoking Question Answer Notes Are you a current smoker How many cigarettes a day do you smoke? 11-20 How soon after you wake up do you smoke your first cigarette ? 31-60 minutes How often do you smoke cigarettes? every day REASON FOR REFERRAL No Information VITAL SIGNS Height 75 in Aug, Weight 265.1 lbs Aug, BMI 33.13 kg/m2 Aug, Blood pressure systolic 123 mm Hg Aug, Blood pressure diastolic 89 mm Hg Aug, MEDICATIONS Medication SIG (Take, Route, Start Date End Date Status Frequency, Duration) Ibuprofen 800 MG as directed Active Tremfya Not-Taking Tresiba FlexTouch Active Farxiga Active Propranolol HCl 40 MG as directed Active Escitalopram Oxalate 20 MG 1 tablet Orally Once a Active day Trelegy Ellipta Active Tramadol HCl 50 MG 1 tablet as needed Jul, Not -Taking Orally Q6H PRN pain PredniSONE 10 MG as directed Active Methocarbamol 750 MG as directed Active Albuterol Sulfate HFA 108 1 puff as needed Active (90 Base) MCG/ACT Sulfamethoxazole-Trimethopri Not-Taking m BuPROPion HCl ER (XL) 300 MG 1 tablet in the morning Active Once a day Afluria Quadrivalent Not-Cody ing Metformin HCl Not-Taking PROCEDURES No Information RESULTS No Results REASON FOR VISIT RT SHOULDER PAIN DISCUSS SURGERY MEDICAL (GENERAL) HISTORY Type Description Date Medical History DIABETES Medical History HX OF STAPH Medical History COPD Medical History DEPRESSION Surgical History RT FEMUR- METAL Goals Section No Information Health Concerns No Information MEDICAL EQUIPMENT No Information MENTAL STATUS No Information FUNCTIONAL STATUS No Information ASSESSMENTS Encounter Date Diagnosis Notes Aug, Subacromial bursitis of right shoulder j oint (ICD-10 - M75.51) Aug, Bicipital tendinitis of right shoulder ( ICD-10 - M75.21) Aug, Impingement syndrome of right shoulder ( ICD-10 - M75.41) Aug, Nontraumatic complete tear of right rota tor cuff (ICD-10 - M75.121) Aug, Pain in joint of right shoulder (ICD-10 - M25.511) PLAN OF TREATMENT Treatment Notes Assessment Notes Clinical Notes Nontraumatic complete tear of I discussed with the patient a t right rotator cuff length his diagnosis and treatment plan and he expressed understanding. His MRI findings demonstrate full thickness tears of the supraspinatus and infraspinatus. He has pain that has not improvement with home exercises and corticosteroid injection. Given his continued symptoms, I recommend right shoulder arthroscopic rotator cuff repair with possible subacromial decompression and biceps tenotomy. I discussed with the patient risks and benefits associated with the procedure at length as well as postoperative rehabilitation and he expressed understanding. I discussed with him smoking cessation as he is at increased risk of failure of rotator cuff repair and healing with smoking and he expressed understanding. He will proceed with surgery next week. Next Appt Details 1 WEEK POST OP Reason: Provider Name:Teodoro Barber, 2020-08-25 1 0:00:00 AM, [address] [facility] [address], [place], [address], Insurance Providers Payer Name Payer Payer Insured Name Patient Coverage Covera ge End Address Phone Relationship to Start Date Lisandro e Insured [employer] [phone] Min [place] [id number] [place] [phone]
--- OUTSIDE RECORDS SUMMARY | 2020-08-23 06:09 | XMS REPORT ---
:1960 Author Organization [facility] Address [address] , [address] [place] [address] Care Team Providers Name Role Phone Teodoro Barber Unavailable [phone] PROBLEMS Type Condition ICD9-CM [id number] Onset Condition SNOMED Code Notes Code Code Dates Status Problem Nontraumatic M75.121 Active [id number] complete tear of right rotator cuff ALLERGIES No Known Allergies ENCOUNTERS from 1960 to 2020-08-02 Encounter Location Date Provider Diagnosis [facility] [address] Jul, Teodoro Barber Pain in [facility] of [facility] [address] [place], [place] M[address] ; [place] [id number] tendinitis of r ight shoulder M75.21 ; Nontraumatic co mplete tear of right r otator cuff M75.121 an d Impingement syn drome of right should er M75.41 IMMUNIZATIONS No Information SOCIAL HISTORY Sex Assigned At : Social History Observation Description Sex Assigned At Unknown REASON FOR REFERRAL No Information VITAL SIGNS Height 75 in Jul, Weight 268 lbs Jul, Temperature 97.1 degrees Fahrenheit Jul, BMI 33.49 kg/m2 Jul, Blood pressure systolic 118 mm Hg Jul, Blood pressure diastolic 71 mm Hg Jul, MEDICATIONS Medication SIG (Take, Route, Start Date End Date Status Frequency, Duration) BuPROPion HCl ER (XL) Active Ibuprofen Active PredniSONE Active Albuterol Sulfate HFA Active Sulfamethoxazole-Trimethoprim Active Escitalopram Oxalate Active Methocarbamol Active Tremfya Active Tramadol HCl 50 MG 1 tablet as needed Orally Jul, Active Q6H PRN pain Trelegy Ellipta Active Metformin HCl Active PROCEDURES No Information RESULTS No Results REASON FOR VISIT MRI RESULTS RT SHOULDER MEDICAL (GENERAL) HISTORY Type Description Date Medical History DIABETES Medical History HX OF STAPH Medical History COPD Medical History DEPRESSION Surgical History RT FEMUR- METAL Goals Section No Information Health Concerns No Information MEDICAL EQUIPMENT No Information MENTAL STATUS No Information FUNCTIONAL STATUS No Information ASSESSMENTS Encounter Date Diagnosis Notes Jul, Impingement syndrome of right shoulder ( ICD-10 - M75.41) Jul, Nontraumatic complete tear of right rota tor cuff (ICD-10 - M75.121) Jul, Bicipital tendinitis of right shoulder ( ICD-10 - M75.21) Jul, Pain in joint of right shoulder (ICD-10 - M25.511) PLAN OF TREATMENT Medication Medication Name Sig Start Date Stop Date Tramadol HCl 50 MG 1 tablet as needed Orally Q6H PRN pain Jul Next Appt Details will call to schedule surgery Reason:
--- OUTSIDE RECORDS SUMMARY | 2020-08-23 06:09 | XMS REPORT | Continuity of Care Document ---
:1960 Author Organization [facility] Address [address] [place] [address] Care Team Providers Name Role Phone Unavailable Unavailable Unavailable Problems This patient has no known problems. Allergies, Adverse Reactions, Alerts This patient has no known allergies or adverse reactions. Medications This patient has no known medications. Procedures This patient has no known procedures. Encounters Start End Encounter Admission Attending Care Care Encounter Source Date/Time Date/Time Type Type Clinicians Facility Department ID 2020-08-17 2020-08-17 Outpatient [facility] [id number] [facility] 2020-07-28 2020-07-28 Outpatient [facility] [id number] [facility] Results This patient has no known results.
[2020-08-23] MEDS ORDERED: FENTANYL CITR 100 MCG/2 ML ONE (06:38)
[2020-08-23] MEDS ORDERED: NS 0.9% VIAL 10 ML ONE ×2 (06:38→09:14)
[2020-08-23] MEDS ORDERED: MIDAZOLAM HCL 2 MG/2 ML INJ ONE (06:38)
[2020-08-23] MEDS ORDERED: LIDOCAINE 2% MPF 5 ML VIAL ONE ×2 (06:38→07:26)
[2020-08-23] MEDS ORDERED: ROPLVACAINE HCL 40 ML ONE (06:39)
[2020-08-23] MEDS ORDERED: dexAMETHasone 4 MG/ML VIAL ONE (06:39)
[2020-08-23] MEDS ORDERED: EPINEPHRINE/PF 1 MG/ML AMP ONE (07:08)
[2020-08-23] MEDS ORDERED: propofoL 200 MG/20 ML VIAL IV ONE (07:26)
[2020-08-23] MEDS ORDERED: ROCURONIUM 50 MG/5 ML VIAL IV ONE ×2 (07:26→08:29)
[2020-08-23] MEDS ORDERED: VECURONIUM 10 MG/VIAL IV ONE (09:37)
[2020-08-23] MEDS ORDERED: GLYCOPYRROLATE 0.2 MG/ML SYR ONE (09:38)
[2020-08-23] MEDS ORDERED: NEOSTIGMINE 1 MG/ML -5 ML ONE (09:39)
[2020-08-23] MEDS ORDERED: ALBUTEROL INHALER 60 PUFF/8 GM IH ONE (09:39)
[2020-08-23] MEDS ORDERED: KETOROLAC 30 MG/ML INJ ONE (09:40)
[2020-08-23] MEDS ORDERED: ONDANSETRON 4 MG/2 ML VIAL ONE (09:41)
--- NOTE | 2020-08-23 10:06 | P.BOP ---
Preoperative diagnosis: right shoulder rotator cuff tear, biceps tendinitis, impingement syndrome Postoperative diagnosis: same, right shoulder SLAP tear Primary procedure: right shoulder arthroscopic rotator cuff repair Secondary procedure: right shoulder arthroscopic SLAP debridement with biceps tenotomy Other procedure(s): right shoulder arthroscopic subacromial decompression Sweatband Drummer: NONE,NONE Estimated blood loss: <10 cc Specimen: none Findings: see dictation Anesthesia: General Complications: None Implants: 1- 5.5 mm Arthrex corkscrew, 2 - 4.75 mm Swivelock Fluids & blood products: per anesthesia record Transferred to: Recovery Room Condition: Good
[2020-08-23] MEDS ORDERED: NA CHLORIDE 0.9% 1,000 ML ONE (10:19)
[2020-08-23] MEDS ORDERED: INSULIN -REGULAR HUMAN 50 UNIT/0.5 ML ML ONE (10:26)
--- NOTE | 2020-08-23 11:08 | RAD REPORT ---
EXAM DESCRIPTION: RAD - Shoulder 1 View - 08/23/2020 10:39 am CLINICAL HISTORY: S/P RIGHT RCR WITH SAD COMPARISON: Shoulder Rt Wo Cont dated 07/10/2020 FINDINGS: Single postop view shows degenerative change at the AC joint without separation. Acromial humeral joint space is narrowed. No foreign body in the soft tissues. No suspicious or unexpected finding.
[2020-08-23] MEDS ORDERED: HYDROCODONE/APAP 7.5/325 MG TAB ONE (11:53)
[2020-08-23 13:52] VITALS: BP 116/76; TEMP 97.3; O2SAT 95
--- NOTE | 2020-08-24 23:36 | OP ---
Date of Procedure: 08/23/2020 Surgeon: Teodoro Barber MD Preoperative Diagnoses: 1.Right shoulder rotator cuff tear. 2.Right shoulder since bicipital tenosynovitis. 3.Right shoulder impingement syndrome. Postoperative Diagnoses: 1.Right shoulder rotator cuff tear. 2.Right shoulder since bicipital tenosynovitis. 3.Right shoulder impingement syndrome. 4.Right shoulder superior labrum anterior and posterior tear. Procedure Performed: 1.Right shoulder arthroscopic rotator cuff repair. 2.Right shoulder arthroscopic superior labrum anterior and posterior tear debridement with biceps te notomy. 3.Right shoulder arthroscopic subacromial decompression. Anesthesia: General endotracheal. Fluids: Per Anesthesia record. Estimated Blood Loss: Less than 10 cc. Complications: None. Implants: 1.5.5 mm Arthrex corkscrew. 2.Two 4.75 mm Arthrex SwiveLocks. Indication For Procedure: Mr. Aly is a 60-year-old male presented to my clinic with signs, sympt oms, and MRI findings consistent with a right shoulder acute rotator cuff tear, bicipital tenosynovit is, and impingement syndrome. I discussed with the patient at length risks and benefits associated w ith operative and nonoperative treatment. He expressed understanding and elected to proceed with ope rative treatment. Description Of Procedure: After informed consent was obtained, the patient was identified in the pre operative holding area. The right upper extremity was marked. The patient was then taken to PACU wh ere he underwent an interscalene block to his right upper extremity performed by Anesthesia. He was then taken to the operating room, transferred to the operating table in the supine fashion, and place d under general endotracheal anesthesia. He was then placed on the operating table in the beach asia r fashion and extremities were well padded. The right upper extremity was then examined. The patien t had full range of motion, no instability noted. The right upper extremity was then prepped and ez ped in the usual sterile fashion. A time-out was initiated. Correct patient and procedure were conf irmed and identified. The patient did receive his preoperative prophylactic antibiotics. Via the po sterior portal position, a spinal needle was introduced into the glenohumeral joint and the shoulder was injected with 30 cc of normal saline to distend the capsule. A stab incision was made over the p osterior portal position and the arthroscope was brought into the joint via the posterior portal posi tion. An anterior portal was then created using direct visualization and then cannula was placed. D iagnostic arthroscopy was performed. The patient was noted to have intact subscapularis. No loose b odies were found within the axillary pouch. The patient was noted to have a stable anterior and post erior labrum. The patient was noted to have significant fraying of the superior labrum with superior labral tear with a SLAP tear as well as fraying of the biceps tendon anchor. Biceps tenotomy was pe rformed using a meniscal biter via the anterior portal and was completely released. The SLAP tear wa s debrided using an arthroscopic shaver. Next, attention was taken to the supraspinatus which was id entified and was noted to be a full-thickness tear. The undersurface of the supraspinatus was then d ebrided using the arthroscopic shaver. The lateral portal was created using a spinal needle. An art hroscopic shaver was brought into the glenohumeral joint. Surface of the supraspinatus was then debr ided using the shaver as well as the greater tuberosity to create a bleeding bony bed. The arthrosco pe was then brought into the subacromial space where the subacromial bursectomy was performed. The s upraspinatus tear was identified and debrided on the bursal aspect of it as well as the greater tuber osity. The patient was noted to have significant fraying of the coracoacromial ligament. A radiofre quency ablator was then used to debride off the undersurface of the acromion. A stab incision was ma de just lateral to the acromion and a 5.5 mm Arthrex double-loaded corkscrew was then placed just lat eral to the articular surface. Sutures were then passed in an anterior to posterior direction in hor izontal mattress fashion and tied for medial row fixation. The sutures were then placed in a crisscr oss fashion and 2 lateral row 4.75 mm Arthrex SwiveLocks were then placed with good overall reduction of the supraspinatus and anterior infraspinatus tear. The remaining sutures were cut. One of the s uture limbs from the center of the SwiveLocks was then used to reinforce the repair and placed in the posterior aspect of the repair. Next, attention was taken to perform a subacromial decompression. Again, radiofrequency ablator was used to debride the undersurface of the acromion and an arthroscopi c olivia was used to perform an acromioplasty to debride any subacromial spurring. The arthroscopic in struments were then removed without complication. Wounds were then irrigated thoroughly with normal saline. Portals were approximated using a 3-0 Monocryl and 2-0 Vicryl. Sterile dressings were place d. The patient was placed in a shoulder immobilizer, awakened, and transferred to PACU in stable con dition. Postoperative Plan: He will be nonweightbearing. His right upper extremity remained in a shoulder i mmobilizer for 6 weeks. He will follow up in 1 week for wound check and will follow the medium rotat or cuff repair protocol at 4 weeks postoperatively. SINA/RICKY Voice ID: [id number] Report ID: [id number]
== END 2020-08-23 12:40 | disposition home or self-care (01) ==
LOC: OR 06:05
PROVIDERS: ATTEND Orthopaedic Surgery Sports Medicine
PROC: 0RHJ44Z Insertion of Internal Fixation Device into Right Shoulder Joint, Percutaneous Endoscopic Approach (ICD-10-PCS; 2020-08-23)
PROC: 0RNJ4ZZ Release Right Shoulder Joint, Percutaneous Endoscopic Approach (ICD-10-PCS; 2020-08-23)
PROC: 0RBJ4ZZ Excision of Right Shoulder Joint, Percutaneous Endoscopic Approach (ICD-10-PCS; 2020-08-23)
PROC: 0LQ14ZZ Repair Right Shoulder Tendon, Percutaneous Endoscopic Approach (ICD-10-PCS; principal; 2020-08-23 07:30)
DX: M75.121 Complete rotator cuff tear or rupture of right shoulder, not specified as traumatic (principal); M75.21 Bicipital tendinitis, right shoulder; M75.51 Bursitis of right shoulder; M75.41 Impingement syndrome of right shoulder; Z20.828 Contact with and (suspected) exposure to other viral communicable diseases
CPT/HCPCS: 93005; 85025; 80048; 36415; 85610; 82947 ×3; 85730; 71046; 73020; 29827; 29826; 29822; U0002; J2704; J1100; J0171; J2250; J3010; J2795; J2710; J7030; J2405

== ENCOUNTER 2021-08-01 11:50 | Emergency (ER) | payer BC ==
[2021-08-01 12:56] LABS: Blood Gas Oxyhemoglobin 91.2 % (94-97); Blood O2 Saturation 95.9 % (92-98.5)
[2021-08-01 12:57] LABS: MPV 9.1 fL (7.6-11.3); RBC Red Blood Cell Count 5.16 M/uL (4.33-5.43)
[2021-08-01 13:13] LABS: ALT/SGPT 21 U/L (12-78); AST/SGOT 11 U/L (15-37); Albumin 3.5 g/dL (3.4-5.0); Alkaline Phosphatase 109 U/L (45-117); BUN Blood Urea Nitrogen 18 mg/dL (7-18); Bicarbonate 26 mmol/L (21-32); Bilirubin Direct 0.1 mg/dL (0-0.2); Bilirubin Total 0.5 mg/dL (0.2-1.0); Creatine Phosphokinase 48 U/L (39-308); Glucose Level 142 mg/dL (74-106); Lipase 121 U/L (73-393); Magnesium 2.3 mg/dL (1.8-2.4); Potassium 4.3 mmol/L (3.5-5.1); Protein, Total 7.2 g/dL (6.4-8.2); Sodium Level 140 mmol/L (136-145)
[2021-08-01 13:14] LABS: CKMB Creatine Kinase MB < 1.0 ng/mL (1.0-3.6)
[2021-08-01] MEDS ORDERED: DIAZEPAM 10 MG/2 ML INJ SYRINGE ONE (13:26)
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
--- NOTE | 2021-08-01 13:47 | EDPHYS ---
Physician Documentation [facility] Name: Min Aly Age: 61 yrs Sex: Male : 1960 Arrival Date: 08/01/2021 Time: 11:51 Bed 30 Private MD: ED Physician Alonzo Guillen HPI: 08/01 12:44 This 61 yrs old Male presents to ER via Ambulatory with complaints of trouble ma2 staying awake/breathing, shaking. 12:44 Onset: The symptoms/episode began/occurred gradually, 1 day(s) ago. Severity of ma2 symptoms: At their worst the symptoms were very mild in the emergency department the symptoms have improved. The patient has experienced similar episodes in the past. Here with shaking, nervousness, has been drinking alcohol heavily 2 days ago, no other symptoms at this time. Symptoms improved.. Historical: - Allergies: 12:02 No Known Drug Allergies; tw2 - Home Meds: 11:56 Humira subcutaneous [Active]; tw2 12:02 bupropion HBr 300 mg oral [Active]; escitalopram oxalate 20 mg oral tab 1 tab once tw2 daily [Active]; Tresiba FlexTouch U-100 100 unit/mL (3 mL) subcutaneous inpn [Active]; Trelegy Ellipta 200-62.5-25 mcg inhalation dsdv 1 puff once daily [Active]; albuterol sulfate 90 mcg/actuation Inhl aepb 1 puff every 4 hours [Active]; - PMHx: 11:56 COPD; Diabetes - NIDDM; tw2 - Immunization history:: Client reports receiving the Naveed \T\ Naveed single-dose vaccine. - Social history:: Smoking status: Patient reports the use of cigarette tobacco products, smokes one pack cigarettes per day. - Family history:: not pertinent. ROS: 12:44 Constitutional: Negative for fever, chills, and weight loss. ma2 12:44 All other systems are negative. Exam: 12:44 Constitutional: This is a well developed, well nourished patient who is awake, alert, ma2 and in no acute distress. Head/Face: Normocephalic, atraumatic. Eyes: Pupils equal round and reactive to light, extra-ocular motions intact. Lids and lashes normal. Conjunctiva and sclera are non-icteric and not injected. Cornea within normal limits. Periorbital areas with no swelling, redness, or edema. ENT: Nares patent. No nasal discharge, no septal abnormalities noted. Tympanic membranes are normal and external auditory canals are clear. Oropharynx with no redness, swelling, or masses, exudates, or evidence of obstruction, uvula midline. Mucous membranes moist. Neck: Trachea midline, no thyromegaly or masses palpated, and no cervical lymphadenopathy. Supple, full range of motion without nuchal rigidity, or vertebral point tenderness. No Meningismus. Chest/axilla: Normal chest wall appearance and motion. Nontender with no deformity. No lesions are appreciated. Cardiovascular: Regular rate and rhythm with a normal S1 and S2. No gallops, murmurs, or rubs. Normal PMI, no JVD. No pulse deficits. Respiratory: Lungs have equal breath sounds bilaterally, clear to auscultation and percussion. No rales, rhonchi or wheezes noted. No increased work of breathing, no retractions or nasal flaring. Abdomen/GI: Soft, non-tender, with normal bowel sounds. No distension or tympany. No guarding or rebound. No evidence of tenderness throughout. Back: No spinal tenderness. No costovertebral tenderness. Full range of motion. Skin: Warm, dry with normal turgor. Normal color with no rashes, no lesions, and no evidence of cellulitis. MS/ Extremity: Pulses equal, no cyanosis. Neurovascular intact. Full, normal range of motion. Neuro: Awake and alert, GCS 15, oriented to person, place, time, and situation. Cranial nerves II-XII grossly intact. Motor strength 5/5 in all extremities. Sensory grossly intact. Cerebellar exam normal. Normal gait. Vital Signs: 11:55 BP 129 / 80; Pulse 88; Resp 20; Temp 97.9(TE); Pulse Ox 98% on R/A; Weight 104.33 kg tw2 (R); Height 6 ft. 3 in. (190.50 cm); Pain 0/10; 12:18 BP 123 / 86; Pulse 78; Resp 19; Temp 97.9(TE); Pulse Ox 97% on R/A; kh1 13:30 BP 97 / 66; Pulse 73; Resp 20; Pulse Ox 93% on R/A; kh1 14:28 BP 118 / 75; Pulse 89; Resp 20; Pulse Ox 95% on R/A; kh1 11:55 Body Mass Index 28.75 (104.33 kg, 190.50 cm) tw2 MDM: 12:13 Patient medically screened. [facility] 12:44 Differential Diagnosis Dehydration electrolyte dehydration electrolyte abnormality, CO2 ma2 retention. 13:45 Data reviewed: vital signs, nurses notes. Counseling: I had a detailed discussion with ma the patient and/or guardian regarding: the historical points, exam findings, and any diagnostic results supporting the discharge/admit diagnosis, the presence of at least one elevated blood pressure reading (>120/80) during this emergency department visit, the need for outpatient follow up. Response to treatment: the patient's symptoms have resolved after treatment. 13:45 ED course: State drinking alcohol heavily last couple of days. [facility] 08/01 12:30 Order name: BMP; Complete Time: 13:24 [facility] 08/01 12:30 Order name: CBC with Diff; Complete Time: 13:24 [facility] 08/01 12:30 Order name: CPK; Complete Time: 13:24 [facility] 08/01 12:30 Order name: Ckmb; Complete Time: 13:24 [facility] 08/01 12:30 Order name: Hepatic Function; Complete Time: 13:24 [facility] 08/01 12:30 Order name: Lipase; Complete Time: 13:24 [facility] 08/01 12:30 Order name: Magnesium; Complete Time: 13:24 [facility] 08/01 12:30 Order name: ABG; Complete Time: 13:47 [facility] 08/01 12:30 Order name: EKG; Complete Time: 12:31 [facility] 08/01 12:30 Order name: Cardiac monitoring; Complete Time: 13:20 [facility] 08/01 12:30 Order name: EKG - Nurse/Tech; Complete Time: 14:04 [facility] 08/01 12:30 Order name: IV Saline Lock; Complete Time: 13:20 [facility] 08/01 12:30 Order name: Labs collected and sent; Complete Time: 13:20 [facility] 08/01 12:30 Order name: O2 Per Protocol; Complete Time: 13:20 [facility] 08/01 12:30 Order name: O2 Sat Monitoring; Complete Time: 13:20 [facility] 09/22 12:30 Order name: Urine Dipstick-Ancillary (obtain specimen) tn2 Administered Medications: 13:10 Drug: Valium (diazepam) 10 mg Route: IVP; Site: right antecubital; [facility] Disposition Summary: 08/01/21 13:47 Discharge Ordered Location: Home ma2 Condition: Stable ma2 Diagnosis - Tremor, unspecified ma2 Followup: ma2 - With: Private Physician - When: Tomorrow - Reason: Continuance of care Discharge Instructions: - Discharge Summary Sheet ma2 - Tremor ma2 Forms: - Medication Reconciliation Form ma2 - Thank You Letter ma2 - Antibiotic Education ma2 - Prescription Opioid Use ma2 Prescriptions: - buspirone 5 mg Oral tablet - take 1 tablet by ORAL route 3 times per day; 45 tablet; Refills: 0, Product ma2 Selection Permitted - Benadryl 25 mg Oral Capsule - take 1 capsule by ORAL route every 6 hours As needed; 30 tablet; Refills: 0, ma2 Product Selection Permitted Signatures: Dispatcher [employer] Rosa Morocho RN RN 2 Alonzo Guillen MD MD tn2 Miya Manuel [facility] Corrections: (The following items were deleted from the chart) 12:07 11:56 Home Meds: trilogy; tw2 tw2
[2021-08-01 15:32] VITALS: TEMP 97.9
[2021-08-01 15:36] VITALS: BP 118/75; O2SAT 95
== END 2021-08-01 14:30 | disposition home or self-care (01) ==
LOC: ER 11:50
DX: R25.1 Tremor, unspecified (principal); J44.9 Chronic obstructive pulmonary disease, unspecified; E11.9 Type 2 diabetes mellitus without complications; F17.210 Nicotine dependence, cigarettes, uncomplicated
CPT/HCPCS: 93005; 85025; 80048; 36415; 83735; 82550; 80076; 82553; 83690; 82805; 96374; 99283; J3360

== ENCOUNTER 2022-12-15 00:37 | Inpatient (IN) | payer BC ==
--- OUTSIDE RECORDS SUMMARY | 2022-12-15 00:41 | XMS REPORT | Continuity of Care Document ---
:1960 Author Organization [facility] t Address [address] [place] [address] Care Team Providers Name Role Phone DAVID ORDOÑEZ Primary Care Physician Unavailable Nakul Yeager Attending Clinician Unavailable TERESE DELEON Attending Clinician Unavailable Terese Deleon MD Attending Clinician Doctor Unassigned, [place] Attending Clinician Unavailable MD QIANA Attending Clinician Unavailable ALVARO Attending Clinician Unavailable Damián Najera MD Attending Clinician [phone] DAMIÁN NAJERA Attending Clinician Unavailable Therapist, [facility] Attending Clinician Unavailable Boni Barragan MD Attending Clinician BONI BARRAGAN Attending Clinician Unavailable ANASTACIO ARMIJO Attending Clinician Unavailable TEE DURÁN Attending Clinician Unavailable TRUNG SPRINGER Attending Clinician Unavailable KHADRA BERGER Attending Clinician Unavailable FRITZ OROZCO Attending Clinician Unavailable LEROY RAJAN Attending Clinician Unavailable LAB90 Attending Clinician Unavailable IHDE_G Attending Clinician Unavailable Nakul Yeager Admitting Clinician Unavailable TERESE DELEON Admitting Clinician Unavailable Terese Deleon MD Admitting Clinician TAMIKOA Admitting Clinician Unavailable IHDE_G Admitting Clinician Unavailable Payers Payer Name Policy Type Policy Number Effective Date Expiration Date Keyur KRAUS BCBS BLUE [id number] 2020-11-10 ADVANTAGE O 00:00:00 FIRST 2 [id number] 2021-06-10 HLTH-ADMINISTRAT 00:00:00 [place] CONCEPTS/PPO Blue Cross and C1 [id number] Common S pirit Blue [facility] Blue Cross and C1 [id number] Common S pirit Blue [facility] Blue Cross and C1 [id number] Common S pirit Blue [facility] Blue Cross and C1 [id number] Common S pirit Blue [facility] Blue Cross and C1 [id number] [facility] [place] [id number] 2019-11-10 2020-11-09 ADVANTAGE (O) 00:00:00 00:00:00 Blue Cross and C1 [id number] Common S pirit Blue [facility] Blue Cross and C1 [id number] Common S pirit Blue [facility] Blue Cross and C1 [id number] Common S pirit Blue [facility] Blue Cross and C1 [id number] Common S pirit Blue [facility] Blue Cross and C1 [id number] Common S pirit Blue [facility] Blue Cross and C1 [id number] Common pirit Blue [facility] Problems Condition Condition Condition Status Onset Resolution Last Treating Co mments Source Name Details Category Date Date Treatment Clinician Date No known No known Disease Unive rs active active ity of problems problems [facility] [id number] Nontraumat Problem Active C ommon [id number] ic Spirit complete - [facility] Allergies, Adverse Reactions, Alerts Allergy Allergy Status Severity Reaction(s) Onset Inactive Treating Comm ents Source Name Type Date Date Clinician NO KNOWN Drug Active Univers ALLERGIE Class ity of [facility] Social History Social Habit Start Date Stop Date Quantity Comments Source Sex Assigned At Common Sp demond - [facility] History of Tobacco Current Smoker Co mmon Spirit - Use [facility] Exposure to 2022-08-09 2022-08-19 Not sure University SARS-CoV-2 (event) 00:00:00 14:34:00 [facility] Alcohol intake 2022-08-19 2022-08-19 Ex-drinker University 00:00:00 00:00:00 (finding) [facility] Cigarettes smoked 2022-01-31 2022-01-31 Univers ity of current (pack per 00:00:00 00:00:00 [facility] joseph) - Reported Branch Tobacco use and 2022-01-31 2022-01-31 Smokeless Universit y of exposure 00:00:00 00:00:00 tobacco non-user [facility] Smoking Status Start Date Stop Date Source Heavy Tobacco Smoker [facility] Smokes tobacco daily 2022-01-31 00:00:00 Univers ity of [facility] Medications Ordered Filled Start Stop Current Ordering Indication Dosage Frequency Signature Comments Components Source Medication Medication Date Date Medication? Clinician (SIG) Name Name lactated 2021-11 Yes 1000mL at 100 Unive rs ringers IV 0-18 mL/hr, ity of infusion 19:45: 1,000 [place] 1[place]000 [place] 00 IV Medical Infusion, Branch CONTINUOUS , Starting on Fri08/27/22 at 1445, Until Discontinu ed, Routine, PACU lactated 2021-11- No 1000mL at 100 Univ ers ringers IV 0-18 10-18 mL/hr, ity of infusion 19:45: 23:36 1,000 mL, [place] 1,000 mL 00 :37 IV Medical Infusion, Branch CONTINUOUS , Starting on Fri08/27/22 at 1445, Until Tu08/27/22 at 1836, Routine, PACU ondansetron 2021-11 Yes 4mg 4 mg, Slow Univers (ZOFRAN 0-18 IV Push, ity of (PF)) 19:38: PRN, 1 [place] injection 4 27 dose, Medical mg Starting Branch on Fri08/27/22 at 1438, Until Discontinu ed, Routine, Nausea and Vomiting (N/V), PACU ondansetron 2021-11- No 4mg 4 mg, Slow Univers (ZOFRAN 0-18 10-18 IV Push, ity of (PF)) 19:38: 23:36 PRN, 1 [place] injection 4 27 :37 dose, Medical mg Starting Branch on Fri08/27/22 at 1438, Until Fri08/27/22 at 1836, Routine, Nausea and Vomiting (N/V), PACU water for 2021-11- No PRN, Univers irrigation 0-18 10-18 Starting ity of irrigation 18:01: 19:09 on Fri [place] solution 00 :52 08/27/22 Medical at 1301, Branch Until Fri08/27/22 at 1409, Routine, Intra-op simethicone 2021-11- No PRN, Unive rs (GAS RELIEF 0-18 10-18 Starting ity of (SIMETHICON 18:01: 19:09 on Fri [place] E)) 40 00 :52 08/27/22 Medical mg/0.6 mL at 1301, Branch drops Until Fri08/27/22 at 1409, Routine, Intra-op lactated 2021-11- No 1000mL at 42 [facility] rs ringers IV 0-18 10-18 mL/hr, ity of infusion 17:00: 17:03 1,000 mL, [place] 1,000 mL 00 :00 IV Medical Infusion, Branch ONCE, 1 dose, On Fri08/27/22 at 1200, Routine, DSU Pre-op lactated 2021-11- No [facility] 0-18 10-18 mL/hr, ity of infusion 17:00: 17:03 1,000 mL, [place] 1,000 mL 00 :00 IV Medical Infusion, Branch ONCE, 1 dose, On Fri08/27/22 at 1200, Routine, DSU Pre-op escitalopra 2021-11 Yes 20mg Take 20 mg Univers m oxalate 0-18 by mouth ity of 20 mg 16:36: in the [place] tablet 35 morning. Medical Branch escitalopra 2021-11 Yes 20mg Take 20 mg Univers m oxalate 0-18 by mouth ity of 20 mg 16:36: in the [place] tablet 35 morning. Medical Branch escitalopra 2021-11 Yes 20mg Take 20 mg Univers m oxalate 0-18 by mouth ity of 20 mg 14:09: in the [place] tablet 52 morning. Medical Branch budesonide- 2021-11- No Inhale. Un jolynn glycopyr-fo 0-10 10-10 ity of rmoterol 14:32: 00:00 [place] 160-9-4.8 08 :00 Medical mcg/actuati Branch on [facility] budesonide- 2021-11- No Inhale. Un [place]ol[place] glycopyr-fo 0-10 10-10 ity of rmoterol 14:32: 00:00 [place] 160-9-4.8 08 :00 Medical mcg/actuati Branch on [facility] budesonide- 0 Yes Inhale. Uni vers glycopyr-fo 3-24 ity of rmoterol 10:21: [place] 160-9-4.8 31 Medical mcg/actuati Branch on [facility] VENTOLIN Yes INHALE 2 Unive rs HFA 90 3-16 PUFFS BY ity of mcg/actuati 00:00: MOUTH [place] on inhaler 00 EVERY 4 TO Med ical 6 HOURS Branch NEEDED VENTOLIN 0 Yes INHALE 2 Unive rs HFA 90 3-16 PUFFS BY ity of mcg/actuati 00:00: MOUTH [place] on inhaler 00 EVERY 4 TO Med ical 6 HOURS Branch NEEDED VENTOLIN 0 Yes INHALE 2 Unive rs HFA 90 3-16 PUFFS BY ity of mcg/actuati 00:00: MOUTH [place] on inhaler 00 EVERY 4 TO Med ical 6 HOURS Branch NEEDED VENTOLIN 0 Yes INHALE 2 Unive rs HFA 90 3-16 PUFFS BY ity of mcg/actuati 00:00: MOUTH [place] on inhaler 00 EVERY 4 TO Med ical 6 HOURS Branch NEEDED ergocalcife Yes TAKE ONE Un jolynn rol, 3-15 CAPSULE BY ity of vitamin d2, 00:00: MOUTH [place] 1,250 mcg 00 EVERY WEEK Medi anum (50,000 Branch unit) capsule TRESIBA Yes INJECT 30 Unive rs FLEXTOUCH 3-15 UNITS ity of U-200 200 00:00: [place]ANEO [place] unit/mL (3 00 US EVERY Medic al mL) InPn DAY Branch simvastatin Yes Univer s 20 mg 3-15 ity of tablet 00:00: Medical Branch ergocalcife Yes TAKE ONE Un jolynn rol, 3-15 CAPSULE BY ity of vitamin d2, 00:00: MOUTH [place] 1,250 mcg 00 EVERY WEEK Medi anum (50,000 Branch unit) capsule TRESIBA Yes INJECT 30 Unive rs FLEXTOUCH 3-15 UNITS ity of U-200 200 00:00: [place]ANEO [place] unit/mL (3 00 US EVERY Medic al mL) InPn DAY Branch simvastatin Yes Univer s 20 mg 3-15 ity of tablet 00:00: Medical Branch ergocalcife Yes TAKE ONE Un jolynn rol, 3-15 CAPSULE BY ity of vitamin d2, 00:00: MOUTH [place] 1,250 mcg 00 EVERY WEEK Medi anum (50,000 Branch unit) capsule TRESIBA Yes INJECT 30 Unive rs FLEXTOUCH 3-15 UNITS ity of U-200 200 00:00: SUBCUTANEO [place] unit/mL (3 00 US EVERY Medic al mL) InPn DAY Branch simvastatin Yes Univer s 20 mg 3-15 ity of tablet 00:00: Medical Branch ergocalcife Yes TAKE ONE Un jolynn rol, 3-15 CAPSULE BY ity of vitamin d2, 00:00: MOUTH [place] 1,250 mcg 00 EVERY WEEK Medi anum (50,000 Branch unit) capsule TRESIBA Yes INJECT 30 Unive rs FLEXTOUCH 3-15 UNITS ity of U-200 200 00:00: [place]ANEO [place] unit/mL (3 00 US EVERY Medic al mL) InPn DAY Branch simvastatin Yes Univer s 20 mg 3-15 ity of tablet 00:00: Medical Branch TREMFYA 100 Yes Univer s mg/mL SC 3-09 ity of injection 00:00: Medical Branch TREMFYA 100 Yes 100mg inject 100 Univers mg/mL SC 3-09 mg under ity of injection 00:00: the [place] 00 every 8 Medical (eight) Branch weeks. TREMFYA 100 2021-0 Yes 100mg inject 100 Univers mg/mL SC 3-09 mg under ity of injection 00:00: the [place] 00 every 8 Medical (eight) Branch weeks. TREMFYA 100 2021-0 Yes 100mg inject 100 Univers mg/mL SC 3-09 mg under ity of injection 00:00: the [place] 00 every 8 Medical (eight) Branch weeks. buPROPion 2021-0 Yes Univers XL 300 mg 2-25 ity of 24 hr 00:00: [place] tablet 00 Medical Branch buPROPion 2021-0 Yes Univers XL 300 mg 2-25 ity of 24 hr 00:00: [place] tablet 00 Medical Branch buPROPion 2021-0 Yes Univers XL 300 mg 2-25 ity of 24 hr 00:00: [place] tablet 00 Medical Branch buPROPion 2021-0 Yes Univers XL 300 mg 2-25 ity of 24 hr 00:00: [place] tablet 00 Medical Branch fluticasone 0 Yes 1{puff} Inhale 1 Univers -umeclidin- 8-16 Puff ity of vilanter 00:00: daily. [place] (TRELEGY 00 Medical ELLIPTA) Branch 200-62.5-25 mcg DsDv fluticasone 0 Yes 1{puff} Inhale 1 Univers -umeclidin- 8-16 Puff ity of vilanter 00:00: daily. [place] (TRELEGY 00 Medical ELLIPTA) Branch 200-62.5-25 mcg DsDv fluticasone 2020-0 Yes 1{puff} Inhale 1 Univers -umeclidin- 8-16 Puff ity of vilanter 00:00: daily. [place] (TRELEGY 00 Medical ELLIPTA) Branch 200-62.5-25 mcg DsDv dapaglifloz 2020-0 Yes 1{tbl} Take 1 Un jolynn in 7-18 tablet by ity of (FARXIGA) 00:00: mouth [place] 10 mg 00 every Medical tablet morning. Branch dapaglifloz 2020-0 Yes 1{tbl} Take 1 Un [place] in 7-18 tablet by ity of (FARXIGA) 00:00: mouth [place] 10 mg 00 every Medical tablet morning. Branch dapaglifloz Yes 1{tbl} Take 1 Un [place] in 7-18 tablet by ity of (XIGA) 00:00: mouth [place] 10 mg 00 every Medical tablet morning. Branch dapaglifloz Yes 1{tbl} Take 1 Un [place] in 7-18 tablet by ity of () 00:00: mouth [place] 10 mg 00 every Medical tablet morning. Branch Sandy 5-325 Sandy 5-325 2020-0 No 1{table QID [place] MG MG 1-06 t_as_ne 5-325 MG 00:00: eded} 00 [place] 5-325 [place] 5-325 2020-0 No 1{table QID [place] MG MG 1-06 t_as_ne 5-325 MG 00:00: eded} 00 [place] 5-325 [place] 5-325 2020-0 No 1{table QID [place] MG MG 1-06 t_as_ne 5-325 MG 00:00: eded} 00 [place] 5-325 [place] 5-325 2020-0 No 1{table QID [place] MG MG 1-06 t_as_ne 5-325 MG 00:00: eded} 00 [place] 5-325 [place] 5-325 2020-0 No 1{table QID [place] MG MG 1-06 t_as_ne 5-325 MG 00:00: eded} 00 [place] 5-325 [place] 5-325 2019-1 2020- No 1{table [place] MG MG 0-29 11-27 t_as_ne 5-325 MG 00:00: 00:00 eded} 00 :00 [place] 5-325 Sandy 5-325 2019-1 2020- No 1{table [place] MG MG 0-29 11-27 t_as_ne 5-325 MG 00:00: 00:00 eded} 00 :00 Tramadol Tramadol 2020-0 No 1{table Tramadol HCl 50 MG HCl 50 MG 9-18 t_as_ne HCl 50 MG 00:00: eded} 00 Tramadol Tramadol 2020-0 No 1{table Tramadol HCl 50 MG HCl 50 MG 9-18 t_as_ne HCl 50 MG 00:00: eded} 00 Tramadol Tramadol 2020-0 No 1{table Tramadol HCl 50 MG HCl 50 MG 9-18 t_as_ne HCl 50 MG 00:00: eded} 00 Tramadol Tramadol 2020-0 No 1{table Tramadol HCl 50 MG HCl 50 MG 9-18 t_as_ne HCl 50 MG 00:00: eded} 00 Tramadol Tramadol 2020-0 No 1{table Tramadol HCl 50 MG HCl 50 MG 9-18 t_as_ne HCl 50 MG 00:00: eded} 00 Tramadol Tramadol 2020-0 No 1{table Tramadol HCl 50 MG HCl 50 MG 9-18 t_as_ne HCl 50 MG 00:00: eded} 00 Tramadol Tramadol 2020-0 No 1{table Tramadol HCl 50 MG HCl 50 MG 9-18 t_as_ne HCl 50 MG 00:00: eded} 00 Tramadol Tramadol 2020-0 No 1{table Tramadol HCl 50 MG HCl 50 MG 9-18 t_as_ne HCl 50 MG 00:00: eded} 00 Tramadol Tramadol 2020-0 No 1{table Tramadol HCl 50 MG HCl 50 MG 9-18 t_as_ne HCl 50 MG 00:00: eded} 00 Tramadol Tramadol 2020-0 No 1{table Tramadol HCl 50 MG HCl 50 MG 9-18 t_as_ne HCl 50 MG 00:00: eded} 00 Tramadol Tramadol 2020-0 No 1{table Tramadol HCl 50 MG HCl 50 MG 9-18 t_as_ne HCl 50 MG 00:00: eded} 00 Tramadol Tramadol 2020-0 No 1{table Tramadol HCl 50 MG HCl 50 MG 9-18 t_as_ne HCl 50 MG 00:00: eded} 00 albuterol albuterol No albuterol [place] HFA sulfate HFA sulfate da 90 90 HFA 90 Medical mcg/actuati mcg/actuati mcg/actuat Group on aerosol on aerosol ion inhaler inhaler aerosol INHALE 2 INHALE 2 inhaler PUFFS PO PUFFS PO INHALE 2 QID PRN QID PRN PUFFS PO QID PRN Propranolol Propranolol No Propranolo HCl 40 MG HCl 40 MG l HCl 40 MG PredniSONE PredniSONE No PredniSONE 10 MG 10 MG 10 MG Tremfya Tremfya No Tremfya Methocarbam Methocarbam No Methocarba ol 750 MG ol 750 MG mol 750 MG Metformin Metformin No Metformin HCl HCl HCl Trelegy Trelegy No Trelegy Ellipta Ellipta Ellipta Hydrocodone Hydrocodone No Hydrocodon -Acetaminop -Acetaminop e-Acetamin hen hen ophen amoxicillin amoxicillin No amoxicilli [place] 875 mg 875 mg n 875 mg da tablet TK 1 tablet TK 1 tablet TK Medical T PO BID T PO BID 1 T PO BID G roup Farxiga Farxiga No Farxiga Afluria Afluria No Afluria Quadrivalen Quadrivalen Quadrivale t t nt Tremfya Tremfya No Tremfya Albuterol Albuterol No 1{puff_ Albuterol Sulfate HFA Sulfate HFA as_need Sulfate 108 (90 108 (90 ed} HFA 108 Base) Base) (90 Base) MCG/ACT MCG/ACT MCG/ACT Sulfamethox Sulfamethox No Sulfametho azole-Trime azole-Trime xazole-Tri thoprim thoprim methoprim Propranolol Propranolol No Propranolo HCl 40 MG HCl 40 MG l HCl 40 MG BuPROPion BuPROPion No 1{table QD BuPROPion HCl ER (XL) HCl ER (XL) t_in_th HCl ER 300 MG 300 MG e_morni (XL) 300 ng} MG Tresiba Tresiba No Tresiba FlexTouch FlexTouch FlexTouch Ibuprofen Ibuprofen No Ibuprofen 800 MG 800 MG 800 MG bupropion bupropion No bupropion [place] HCl XL 300 HCl XL 300 HCl XL 300 da mg 24 hr mg 24 hr mg 24 hr Med ical tablet, tablet, tablet, Group extended extended extended release TK release TK release TK 1 T PO QD 1 T PO QD 1 T PO QD PredniSONE PredniSONE No PredniSONE 10 MG 10 MG 10 MG Escitalopra Escitalopra No 1{table QD Escitalopr m Oxalate m Oxalate t} am Oxalate 20 MG 20 MG 20 MG Methocarbam Methocarbam No Methocarba ol 750 MG ol 750 MG mol 750 MG Metformin Metformin No Metformin HCl HCl HCl Trelegy Trelegy No Trelegy Ellipta Ellipta Ellipta escitalopra escitalopra No escitalopr [place] m 20 mg m 20 mg am 20 mg da tablet TK 1 tablet TK 1 tablet TK Medical T PO QD T PO QD 1 T PO QD Grou p Hydrocodone Hydrocodone No Hydrocodon -Acetaminop -Acetaminop e-Acetamin hen hen ophen Farxiga Farxiga No Farxiga Afluria Afluria No Afluria Quadrivalen Quadrivalen Quadrivale t t nt Tremfya Tremfya No Tremfya Albuterol Albuterol No 1{puff_ Albuterol Sulfate HFA Sulfate HFA as_need Sulfate 108 (90 108 (90 ed} HFA 108 Base) Base) (90 Base) MCG/ACT MCG/ACT MCG/ACT Sulfamethox Sulfamethox No Sulfametho azole-Trime azole-Trime xazole-Tri thoprim thoprim methoprim Farxiga 10 Farxiga 10 No Farxiga 10 [place] mg tablet mg tablet mg tablet da TK 1 T PO TK 1 T PO TK 1 T PO Medical QD QD QD Group Propranolol Propranolol No Propranolo HCl 40 MG HCl 40 MG l HCl 40 MG BuPROPion BuPROPion No 1{table QD BuPROPion HCl ER (XL) HCl ER (XL) t_in_th HCl ER 300 MG 300 MG e_morni (XL) 300 ng} MG Tresiba Tresiba No Tresiba FlexTouch FlexTouch FlexTouch Ibuprofen Ibuprofen No Ibuprofen 800 MG 800 MG 800 MG PredniSONE PredniSONE No PredniSONE 10 MG 10 MG 10 MG Escitalopra Escitalopra No 1{table QD Escitalopr m Oxalate m Oxalate t} am Oxalate 20 MG 20 MG 20 MG Tremfya Tremfya No Tremfya Albuterol Albuterol No 1{puff_ Albuterol Sulfate HFA Sulfate HFA as_need Sulfate 108 (90 108 (90 ed} HFA 108 Base) Base) (90 Base) MCG/ACT MCG/ACT MCG/ACT Doxycycline Doxycycline No Doxycyclin Hyclate Hyclate e Hyclate Trelegy Trelegy No Trelegy Ellipta Ellipta Ellipta hydrocodone hydrocodone No 1 Q4H hydrocodon [place] 5 5 e 5 da mg-acetamin mg-acetamin mg-acetami Medical ophen 300 ophen 300 nophen 300 Group mg tablet mg tablet mg tablet Take 1 Take 1 Take 1 tablet tablet tablet every 4 every 4 every 4 hours by hours by hours by oral route. oral route. oral route. Propranolol Propranolol No Propranolo HCl 40 MG HCl 40 MG l HCl 40 MG BuPROPion BuPROPion No 1{table QD BuPROPion HCl ER (XL) HCl ER (XL) t_in_th HCl ER 300 MG 300 MG e_morni (XL) 300 ng} MG Metformin Metformin No Metformin HCl HCl HCl Sulfamethox Sulfamethox No Sulfametho azole-Trime azole-Trime xazole-Tri thoprim thoprim methoprim PredniSONE PredniSONE No PredniSONE 10 MG 10 MG 10 MG BuPROPion BuPROPion No BuPROPion HCl ER (XL) HCl ER (XL) HCl ER (XL) Methocarbam Methocarbam No Methocarba ol 750 MG ol 750 MG mol 750 MG Farxiga Farxiga No Farxiga Ibuprofen Ibuprofen No Ibuprofen 800 MG 800 MG 800 MG Hydrocodone Hydrocodone No Hydrocodon -Acetaminop -Acetaminop e-Acetamin hen hen ophen methocarbam methocarbam No methocarba [place] ol 750 mg ol 750 mg mol 750 mg da tablet TK 1 tablet TK 1 tablet TK Medical T PO BID T PO BID 1 T PO BID G roup PRN PRN PRN Mupirocin Mupirocin No Mupirocin Escitalopra Escitalopra No 1{table QD Escitalopr m Oxalate m Oxalate t} am Oxalate 20 MG 20 MG 20 MG Tresiba Tresiba No Tresiba FlexTouch FlexTouch FlexTouch Afluria Afluria No Afluria Quadrivalen Quadrivalen Quadrivale t t nt Ibuprofen Ibuprofen No Ibuprofen Albuterol Albuterol No 1{puff_ Albuterol Sulfate HFA Sulfate HFA as_need Sulfate 108 (90 108 (90 ed} HFA 108 Base) Base) (90 Base) MCG/ACT MCG/ACT MCG/ACT Afluria Afluria No Afluria Quadrivalen Quadrivalen Quadrivale t t nt Trelegy Trelegy No Trelegy Ellipta Ellipta Ellipta Tremfya Tremfya No Tremfya PredniSONE PredniSONE No PredniSONE Propranolol Propranolol No Propranolo HCl 40 MG HCl 40 MG l HCl 40 MG BuPROPion BuPROPion No 1{table QD BuPROPion HCl ER (XL) HCl ER (XL) t_in_th HCl ER 300 MG 300 MG e_morni (XL) 300 ng} MG Metformin Metformin No Metformin HCl HCl HCl Sulfamethox Sulfamethox No Sulfametho azole-Trime azole-Trime xazole-Tri thoprim thoprim methoprim Methocarbam Methocarbam No Methocarba ol 750 MG ol 750 MG mol 750 MG Doxycycline Doxycycline No Doxycyclin Hyclate Hyclate e Hyclate Farxiga Farxiga No Farxiga Mupirocin Mupirocin No Mupirocin Hydrocodone Hydrocodone No Hydrocodon -Acetaminop -Acetaminop e-Acetamin hen hen ophen Albuterol Albuterol No Albuterol Sulfate HFA Sulfate HFA Sulfate HFA rosuvastati rosuvastati No rosuvastat [place] n 20 mg n 20 mg in 20 mg da tablet TK 1 tablet TK 1 tablet TK Medical T PO QD T PO QD 1 T PO QD Grou p PredniSONE PredniSONE No PredniSONE 10 MG 10 MG 10 MG Escitalopra Escitalopra No 1{table QD Escitalopr m Oxalate m Oxalate t} am Oxalate 20 MG 20 MG 20 MG Tresiba Tresiba No Tresiba FlexTouch FlexTouch FlexTouch Ibuprofen Ibuprofen No Ibuprofen 800 MG 800 MG 800 MG Sulfamethox Sulfamethox No Sulfametho azole-Trime azole-Trime xazole-Tri thoprim thoprim methoprim Afluria Afluria No Afluria Quadrivalen Quadrivalen Quadrivale t t nt Trelegy Trelegy No Trelegy Ellipta Ellipta Ellipta PredniSONE PredniSONE No PredniSONE 10 MG 10 MG 10 MG Propranolol Propranolol No Propranolo HCl 40 MG HCl 40 MG l HCl 40 MG Albuterol Albuterol No 1{puff_ Albuterol Sulfate HFA Sulfate HFA as_need Sulfate 108 (90 108 (90 ed} HFA 108 Base) Base) (90 Base) MCG/ACT MCG/ACT MCG/ACT Hydrocodone Hydrocodone No Hydrocodon -Acetaminop -Acetaminop e-Acetamin hen hen ophen Mupirocin Mupirocin No Mupirocin Doxycycline Doxycycline No Doxycyclin Hyclate Hyclate e Hyclate Escitalopra Escitalopra No Escitalopr m Oxalate m Oxalate am Oxalate Methocarbam Methocarbam No Methocarba ol 750 MG ol 750 MG mol 750 MG BuPROPion BuPROPion No 1{table QD BuPROPion HCl ER (XL) HCl ER (XL) t_in_ HCl ER 300 MG 300 MG e_morni (XL) 300 ng} MG Sulfamethox Sulfamethox No Sulfametho azole-Trime azole-Trime xazole-Tri oprim thoprim methoprim Tresiba Tresiba No Tresiba FlexTouch FlexTouch FlexTouch Escitalopra Escitalopra No 1{table QD Escitalopr m Oxalate m Oxalate t} am Oxalate 20 MG 20 MG 20 MG Metformin Metformin No Metformin HCl HCl HCl Trelegy Trelegy No Trelegy [place] Ellipta 100 Ellipta 100 Ellipta da mcg-62.5 mcg-62.5 100 Medical mcg-25 mcg mcg-25 mcg mcg-62.5 Group powder for powder for mcg-25 mcg inhalation inhalation powder for INL 1 PUFF INL 1 PUFF inhalation PO QD PO QD INL 1 PUFF PO QD Ibuprofen Ibuprofen No Ibuprofen 800 MG 800 MG 800 MG Farxiga Farxiga No Farxiga Tremfya Tremfya No Tremfya Methocarbam Methocarbam No Methocarba ol ol mol Afluria Afluria No Afluria Quadrivalen Quadrivalen Quadrivale t t nt Tremfya Tremfya No Tremfya Trelegy Trelegy No Trelegy Ellipta Ellipta Ellipta PredniSONE PredniSONE No PredniSONE 10 MG 10 MG 10 MG Propranolol Propranolol No Propranolo HCl 40 MG HCl 40 MG l HCl 40 MG Albuterol Albuterol No 1{puff_ Albuterol Sulfate HFA Sulfate HFA as_need Sulfate 108 (90 108 (90 ed} HFA 108 Base) Base) (90 Base) MCG/ACT MCG/ACT MCG/ACT Hydrocodone Hydrocodone No Hydrocodon -Acetaminop -Acetaminop e-Acetamin hen hen ophen Mupirocin Mupirocin No Mupirocin Doxycycline Doxycycline No Doxycyclin Hyclate Hyclate e Hyclate Methocarbam Methocarbam No Methocarba ol 750 MG ol 750 MG mol 750 MG BuPROPion BuPROPion No 1{table QD BuPROPion HCl ER (XL) HCl ER (XL) t_in_th HCl ER 300 MG 300 MG e_morni (XL) 300 ng} MG Sulfamethox Sulfamethox No Sulfametho azole-Trime azole-Trime xazole-Tri thoprim thoprim methoprim Tresiba Tresiba No Tresiba FlexTouch FlexTouch FlexTouch Escitalopra Escitalopra No 1{table QD Escitalopr m Oxalate m Oxalate t} am Oxalate 20 MG 20 MG 20 MG Metformin Metformin No Metformin HCl HCl HCl Ibuprofen Ibuprofen No Ibuprofen 800 MG 800 MG 800 MG Tresiba Tresiba No Tresiba [place] FlexTouch FlexTouch FlexTouch da U-100 U-100 U-100 Medical insulin 100 insulin 100 insulin Group unit/mL (3 unit/mL (3 100 mL) mL) unit/mL (3 subcutaneou subcutaneou mL) s pen s pen subcutaneo INJECT 12 INJECT 12 us pen UNITS SQ QD UNITS SQ QD INJECT 12 UNITS SQ QD Farxiga Farxiga No Farxiga Tremfya Tremfya No Tremfya Trelegy Trelegy No Trelegy Ellipta Ellipta Ellipta Afluria Afluria No Afluria Quadrivalen Quadrivalen Quadrivale t t nt Trelegy Trelegy No Trelegy Ellipta Ellipta Ellipta PredniSONE PredniSONE No PredniSONE 10 MG 10 MG 10 MG Propranolol Propranolol No Propranolo HCl 40 MG HCl 40 MG l HCl 40 MG Albuterol Albuterol No 1{puff_ Albuterol Sulfate HFA Sulfate HFA as_need Sulfate 108 (90 108 (90 ed} HFA 108 Base) Base) (90 Base) MCG/ACT MCG/ACT MCG/ACT Hydrocodone Hydrocodone No Hydrocodon -Acetaminop -Acetaminop e-Acetamin hen hen ophen Mupirocin Mupirocin No Mupirocin Doxycycline Doxycycline No Doxycyclin Hyclate Hyclate e Hyclate Methocarbam Methocarbam No Methocarba ol 750 MG ol 750 MG mol 750 MG Metformin Metformin No Metformin HCl HCl HCl BuPROPion BuPROPion No 1{table QD BuPROPion HCl ER (XL) HCl ER (XL) t_in_th HCl ER 300 MG 300 MG e_morni (XL) 300 ng} MG Sulfamethox Sulfamethox No Sulfametho azole-Trime azole-Trime xazole-Tri thoprim thoprim methoprim Tresiba Tresiba No Tresiba FlexTouch FlexTouch FlexTouch Escitalopra Escitalopra No 1{table QD Escitalopr m Oxalate m Oxalate t} am Oxalate 20 MG 20 MG 20 MG Metformin Metformin No Metformin HCl HCl HCl Ibuprofen Ibuprofen No Ibuprofen 800 MG 800 MG 800 MG Farxiga Farxiga No Tremfya Tremfya No Tremfya Methocarbam Methocarbam No Methocarba ol 750 MG ol 750 MG mol 750 MG Propranolol Propranolol No Propranolo HCl 40 MG HCl 40 MG l HCl 40 MG Ventolin Ventolin No Ventolin HFA HFA HFA Sulfamethox Sulfamethox No Sulfametho azole-Trime azole-Trime xazole-Tri thoprim thoprim methoprim Doxycycline Doxycycline No Doxycyclin Hyclate Hyclate e Hyclate Tresiba Tresiba No Tresiba FlexTouch FlexTouch FlexTouch PredniSONE PredniSONE No PredniSONE 10 MG 10 MG 10 MG Afluria Afluria No Afluria Quadrivalen Quadrivalen Quadrivale t t nt Pantoprazol Pantoprazol No Pantoprazo e Sodium e Sodium le Sodium Hydrocodone Hydrocodone No Hydrocodon -Acetaminop -Acetaminop e-Acetamin hen hen ophen Mana Mana No Mana COVID-19 COVID-19 COVID-19 Vaccine Vaccine Vaccine Metformin Metformin No Metformin HCl HCl HCl Escitalopra Escitalopra No 1{table QD Escitalopr m Oxalate m Oxalate t} am Oxalate 20 MG 20 MG 20 MG xiga xiga No xiga Ibuprofen Ibuprofen No Ibuprofen 800 MG 800 MG 800 MG Trelegy Trelegy No Trelegy Ellipta Ellipta Ellipta Albuterol Albuterol No 1{puff_ Albuterol Sulfate HFA Sulfate HFA as_need Sulfate 108 (90 108 (90 ed} HFA 108 Base) Base) (90 Base) MCG/ACT MCG/ACT MCG/ACT Tremfya Tremfya No Tremfya Mupirocin Mupirocin No Mupirocin BuPROPion BuPROPion No 1{table QD BuPROPion HCl ER (XL) HCl ER (XL) t_in_th HCl ER 300 MG 300 MG e_morni (XL) 300 ng} MG Ibuprofen Ibuprofen No Ibuprofen 800 MG 800 MG 800 MG Tremfya Tremfya No Tremfya Tresiba Tresiba No Tresiba FlexTouch FlexTouch FlexTouch Farxiga Farxiga No Farxiga Propranolol Propranolol No Propranolo HCl 40 MG HCl 40 MG l HCl 40 MG Escitalopra Escitalopra No 1{table QD Escitalopr m Oxalate m Oxalate t} am Oxalate 20 MG 20 MG 20 MG Trelegy Trelegy No Trelegy Ellipta Ellipta Ellipta PredniSONE PredniSONE No PredniSONE 10 MG 10 MG 10 MG Methocarbam Methocarbam No Methocarba ol 750 MG ol 750 MG mol 750 MG Albuterol Albuterol No 1{puff_ Albuterol Sulfate HFA Sulfate HFA as_need Sulfate 108 (90 108 (90 ed} HFA 108 Base) Base) (90 Base) MCG/ACT MCG/ACT MCG/ACT Sulfamethox Sulfamethox No Sulfametho azole-Trime azole-Trime xazole-Tri thoprim thoprim methoprim BuPROPion BuPROPion No 1{table QD BuPROPion HCl ER (XL) HCl ER (XL) t_in_th HCl ER 300 MG 300 MG e_morni (XL) 300 ng} MG Afluria Afluria No Afluria Quadrivalen Quadrivalen Quadrivale t t nt Metformin Metformin No Metformin HCl HCl HCl Afluria Afluria No Afluria Quadrivalen Quadrivalen Quadrivale t t nt Albuterol Albuterol No 1{puff_ Albuterol Sulfate HFA Sulfate HFA as_need Sulfate 108 (90 108 (90 ed} HFA 108 Base) Base) (90 Base) MCG/ACT MCG/ACT MCG/ACT Metformin Metformin No Metformin HCl HCl HCl Escitalopra Escitalopra No 1{table QD Escitalopr m Oxalate m Oxalate t} am Oxalate 20 MG 20 MG 20 MG Trelegy Trelegy No Trelegy Ellipta Ellipta Ellipta BuPROPion BuPROPion No 1{table QD BuPROPion HCl ER (XL) HCl ER (XL) t_in_th HCl ER 300 MG 300 MG e_morni (XL) 300 ng} MG Ibuprofen Ibuprofen No Ibuprofen 800 MG 800 MG 800 MG Sulfamethox Sulfamethox No Sulfametho azole-Trime azole-Trime xazole-Tri thoprim thoprim methoprim Farxiga Farxiga No Farxiga Methocarbam Methocarbam No Methocarba ol 750 MG ol 750 MG mol 750 MG Tresiba Tresiba No Tresiba FlexTouch FlexTouch FlexTouch Propranolol Propranolol No Propranolo HCl 40 MG HCl 40 MG l HCl 40 MG PredniSONE PredniSONE No PredniSONE 10 MG 10 MG 10 MG Tremfya Tremfya No Tremfya Afluria Afluria No Afluria Quadrivalen Quadrivalen Quadrivale t t nt Albuterol Albuterol No 1{puff_ Albuterol Sulfate HFA Sulfate HFA as_need Sulfate 108 (90 108 (90 ed} HFA 108 Base) Base) (90 Base) MCG/ACT MCG/ACT MCG/ACT Metformin Metformin No Metformin HCl HCl HCl Escitalopra Escitalopra No 1{table QD Escitalopr m Oxalate m Oxalate t} am Oxalate 20 MG 20 MG 20 MG Trelegy Trelegy No Trelegy Ellipta Ellipta Ellipta BuPROPion BuPROPion No 1{table QD BuPROPion HCl ER (XL) HCl ER (XL) t_in_th HCl ER 300 MG 300 MG e_morni (XL) 300 ng} MG Ibuprofen Ibuprofen No Ibuprofen 800 MG 800 MG 800 MG Sulfamethox Sulfamethox No Sulfametho azole-Trime azole-Trime xazole-Tri thoprim thoprim methoprim Farxiga Farxiga No Farxiga Methocarbam Methocarbam No Methocarba ol 750 MG ol 750 MG mol 750 MG Tresiba Tresiba No Tresiba FlexTouch FlexTouch FlexTouch Immunizations Ordered Filled Immunization Date Status Comments Sourc e Immunization Name Name [place]upiv[place] Bupiv[place]aine [place] 2020-06-13 [facility]pleted [facility] Bupivicaine [place] Bupivicaine [place] 2020-06-13 Completed [facility] - 08:58:00 [facility] Bupivicaine [place] Bupivicaine [place] 2020-06-13 Completed [facility] - 08:58:00 [facility] Bupivicaine [place] Bupivicaine [place] 2020-06-13 Completed [facility] 08:58:00 [facility] Bupivicaine [place] Bupivicaine [place] 2020-06-13 Completed [facility] - 08:58:00 [facility] Bupivicaine [place] Bupivicaine [place] 2020-06-13 Completed [facility] - 08:58:00 [facility] Bupivicaine [place] Bupivicaine [place] 2020-06-13 Completed [facility] - 08:58:00 [facility] Bupivicaine [place] Bupivicaine [place] 2020-06-13 Completed [facility] - 08:58:00 [facility] Bupivicaine [place] Bupivicaine [place] 2020-06-13 Completed [facility] - 08:58:00 [facility] Bupivicaine [place] Bupivicaine [place] 2020-06-13 Completed [facility] - 08:58:00 [facility] Bupivicaine [place] Bupivicaine [place] 2020-06-13 Completed [facility] - 08:58:00 [facility] Kenalog Kenalog 2020-06-13 Completed [facility] - (Triamcinolone) (Triamcinolone) 08:53:00 [facility] Kenalog Kenalog 2020-06-13 Completed [facility] - (Triamcinolone) (Triamcinolone) 08:53:00 [facility] Kenalog Kenalog 2020-06-13 Completed [facility] - (Triamcinolone) (Triamcinolone) 08:53:00 [facility] Kenalog Kenalog 2020-06-13 Completed [facility] - (Triamcinolone) (Triamcinolone) 08:53:00 [facility] Kenalog Kenalog 2020-06-13 Completed [facility] - (Triamcinolone) (Triamcinolone) 08:53:00 [facility] Kenalog Kenalog 2020-06-13 Completed [facility] - (Triamcinolone) (Triamcinolone) 08:53:00 [facility] Kenalog Kenalog 2020-06-13 Completed [facility] - (Triamcinolone) (Triamcinolone) 08:53:00 [facility] Kenalog Kenalog 2020-06-13 Completed [facility] - (Triamcinolone) (Triamcinolone) 08:53:00 [facility] Kenalog Kenalog 2020-06-13 Completed [facility] - (Triamcinolone) (Triamcinolone) 08:53:00 [facility] Kenalog Kenalog 2020-06-13 Completed [facility] - (Triamcinolone) (Triamcinolone) 08:53:00 [facility] Kenalog Kenalog 2020-06-13 Completed [facility] - (Triamcinolone) (Triamcinolone) 08:53:00 [facility] Influenza Virus 2016-08-05 Completed [facility] Vaccine [facility] [place] [facility] Multi-dose 6[facility] [place] [facility] Influenza Virus 2016-08-05 Completed [facility] of Vaccine [facility] IM 00:00:00 [place] [facility] Multi-dose 6+ [place] [facility] Influenza Virus 2016-08-05 Completed [facility]it [facility] of Vaccine [facility] IM 00:00:00 [place] [facility] Multi-dose 6+ [place] [facility] Influenza Virus 2016-08-05 Completed [facility]it y of Vaccine [facility] IM 00:00:00 [place] [facility] Multi-dose 6+ [place] [facility] Pneumococcal 2015-04-19 Completed University o f Polysaccharide, 00:00:00 [place] [facility] PPSV23 (PNEUMOVAX) Branch Pneumococcal 2015-04-19 Completed [place] o f Polysaccharide, 00:00:00 [place] [facility] PPSV23 (PNEUMOVAX) Branch Pneumococcal 2015-04-19 Completed University o f Polysaccharide, 00:00:00 [place] [facility] PPSV23 (PNEUMOVAX) Branch Pneumococcal 2015-04-19 Completed University o f Polysaccharide, 00:00:00 [facility] ical PPSV23 (PNEUMOVAX) Branch Vital Signs Vital Name Observation Time Observation Value Comments Source Systolic blood 2022-08-27 19:34:00 126 mm[Hg] Univer sity of pressure [facility] Diastolic blood 2022-08-27 19:34:00 85 mm[Hg] Unive rsity of [facility] Heart rate 2022-08-27 19:34:00 75 /min [facility] Respiratory rate 2022-08-27 19:34:00 21 /min [facility] Oxygen saturation in 2022-08-27 19:34:00 96 /min [facility] Arterial blood by [facility] Pulse oximetry [place] Body temperature 2022-08-27 19:04:00 36.33 Nunu [facility] Body height 2022-08-12 14:59:00 190.5 cm [facility] Body weight 2022-08-12 14:59:00 113.4 kg [facility] BMI 2022-08-12 14:59:00 31.25 kg/m2 Universi ty [facility] Systolic blood 2022-08-27 16:54:00 126 mm[Hg] Univer sity of [facility] Diastolic blood 2022-08-27 16:54:00 94 mm[Hg] Unive rsity of [facility] Heart rate 2022-08-27 16:54:00 108 /min Universi ty [facility] Body temperature 2022-08-27 16:54:00 36.5 Nunu Univ ersity of [facility] Respiratory rate 2022-08-27 16:54:00 18 /min [facility] Oxygen saturation in 2022-08-27 16:54:00 93 /min [facility] blood by [facility] Pulse oximetry Branch Body height 2022-08-12 14:59:00 190.5 cm Universi ty [facility] Body weight 2022-08-12 14:59:00 113.4 kg Universi [facility] BMI 2022-08-12 14:59:00 31.25 kg/m2 Universi [facility] height 2021-02-20 13:30:00 75 [in_i] [facility] weight 2021-02-20 13:30:00 266 [lb_av] [facility] bmi 2021-02-20 13:30:00 33.24 kg/m2 [facility] blood pressure 2021-02-20 13:30:00 126 mm[Hg] [facility] - systolic [facility] blood pressure 2021-02-20 13:30:00 82 mm[Hg] [facility] - diastolic [facility] height 2020-11-29 10:30:00 75 [in_i] [facility] weight 2020-11-29 10:30:00 266 [lb_av] [facility] temperature 2020-11-29 10:30:00 97.3 [degF] [facility] bmi 2020-11-29 10:30:00 33.24 kg/m2 [facility] - [facility] blood pressure 2020-11-29 10:30:00 112 mm[Hg] [facility] - systolic [facility] blood pressure 2020-11-29 10:30:00 78 mm[Hg] [facility] - diastolic [facility] BP Diastolic 2020-10-10 00:00:00 82 mm[Hg] [facility] Height 2020-10-10 00:00:00 75 [in_i] [facility] BMI (Body Mass 2020-10-10 00:00:00 34.2 kg/m2 [facility] BP Systolic 2020-10-10 00:00:00 130 mm[Hg] [facility] Body Weight 2020-10-10 00:00:00 273.3 [lb_av] [facility] height 2020-10-09 10:00:00 75 [in_i] [facility] weight 2020-10-09 10:00:00 266 [lb_av] [facility] bmi 2020-10-09 10:00:00 33.24 kg/m2 [facility] blood pressure 2020-10-09 10:00:00 128 mm[Hg] [facility] - systolic [facility] blood pressure 2020-10-09 10:00:00 91 mm[Hg] [facility] - diastolic [facility] height 2020-09-07 09:30:00 75 [in_i] [facility] - [facility] weight 2020-09-07 09:30:00 266 [lb_av] [facility] - [facility] temperature 2020-09-07 09:30:00 96.9 [degF] [facility] bmi 2020-09-07 09:30:00 33.24 kg/m2 [facility] blood pressure 2020-09-07 09:30:00 122 mm[Hg] [facility] - systolic [facility] blood pressure 2020-09-07 09:30:00 82 mm[Hg] [facility] - diastolic [facility] height 2020-08-25 10:00:00 75 [in_i] [facility] weight 2020-08-25 10:00:00 265 [lb_av] [facility] temperature 2020-08-25 10:00:00 97.1 [degF] [facility] bmi 2020-08-25 10:00:00 33.12 kg/m2 [facility] - [facility] blood pressure 2020-08-25 10:00:00 126 mm[Hg] [facility] - systolic [facility] blood pressure 2020-08-25 10:00:00 84 mm[Hg] [facility] - diastolic [facility] height 2020-08-17 10:00:00 75 [in_i] Common [facility] weight 2020-08-17 10:00:00 265.1 [lb_av] [facility] - [facility] bmi 2020-08-17 10:00:00 33.13 kg/m2 [facility] blood pressure 2020-08-17 10:00:00 123 mm[Hg] [facility] - systolic [facility] blood pressure 2020-08-17 10:00:00 89 mm[Hg] [facility] - diastolic [facility] height 2020-07-28 09:30:00 75 [in_i] Common [facility] weight 2020-07-28 09:30:00 268 [lb_av] [facility] temperature 2020-07-28 09:30:00 97.1 [degF] [facility] bmi 2020-07-28 09:30:00 33.49 kg/m2 Common [facility] blood pressure 2020-07-28 09:30:00 118 mm[Hg] [facility] - systolic [facility] blood pressure 2020-07-28 09:30:00 71 mm[Hg] [facility] - diastolic [facility] Procedures Procedure Date / Time Performing Clinician Source Performed COLONOSCOPY (ENDO) 2022-08-27 18:45:47 Micha, [facility] COLONOSCOPY (ENDO) 2022-08-27 18:45:47 Micha [facility] COLONOSCOPY 2022-08-27 18:25:00 Terese Deleon [facility] ESOPHAGOGASTRODUODENOSCOPY 2022-08-27 18:25:00 Trino Deleon [facility] EGD (ENDO) 2022-08-27 17:43:16 Micha [facility] EGD (ENDO) 2022-08-27 17:43:16 Micha [facility] POCT GLUCOSE (AUTOMATED) 2022-08-27 17:00:00 Terese Deleon [facility] POCT GLUCOSE (AUTOMATED) 2022-08-27 17:00:00 Terese Deleon [facility] DAY SURGERY - ADC 2022-08-27 05:01:00 Doctor Unassigned, [facility] Name [facility] EXTERNAL PROVIDER RECORDS 2022-07-17 05:01:00 Doctor Unassigned, [facility] Name [facility] EXTERNAL PROVIDER RECORDS 2022-07-17 05:01:00 Doctor Unassigned, [facility] Name [facility] Encounters Start End Encounter Admission Attending Care Care Encounter Source Date/Time Date/Time Type Type Clinicians Facility Department ID 2021-12-05 Outpatient Feaver, STLMLC STLMLC [id number] Common 12:41:55 Nakul [id number] [facility] 2021-12-05 Outpatient Feaver, STLMLC STLMLC [id number] Common 12:22:44 Nakul [id number] [facility] 2021-12-05 Outpatient Feaver, STLMLC STLMLC [id number] Common 11:46:32 Nakul [id number] [facility] 2022-08-27 2022-08-27 Outpatient R [facility] [id number] Univers 11:42:00 14:48:00 TERESE Crowe rad [facility] 2022-08-27 2022-08-27 [facility] [id number] Univers 11:42:00 14:48:00 Encounter Terese crowe [id number] [id number] [id number] [facility] 071 Branch 2022-08-27 2022-08-27 Surgery [facility] [id number] Univers 12:50:00 13:46:00 eTerese [id number] [id number] [id number] [facility] 020 Branch 2022-08-27 2022-08-27 Orders Doctor VASILE [id number] Univers 00:00:00 00:00:00 Only Unassigned, TONY [id number] [facility] [id number] Rod as [phone] [facility] 009 Branch 2022-08-26 2022-08-26 Outpatient R [facility] [id number] Univers 07:45:00 07:45:00 TERESE Crowe o f [facility] 2022-06-07 2022-06-07 Outpatient IVETH MIKE [id number] Bev 00:00:00 00:00:00 MD Jessica ESTEVEZ 2022-05-23 2022-05-23 [facility] [id number] [facility] 04:04:00 E[facility]AR [facility]14 [facility] 2022-03-05 2022-03-05 Telephone BRANDON Najera ..840.114 [id number] Univers 00:00:00 00:00:00 Damián Y HEALTH [id number] ity of [facility] [id number] [phone] [facility] 084 Branch 2022-02-22 2022-02-22 Orders Doctor VASILE [id number] Univers 00:00:00 00:00:00 Only Unassigned, TONY [id number] ity of [place] [facility] [id number] Rod as [id number] [address] 2022-02-12 2022-02-12 Outpatient R DANIA [facility] [id number] Univers 00:00:00 00:00:00 [facility] tanisha o [facility] 2022-02-12 2022-02-12 Orders Doctor BURNETTE [id number] Univers 00:00:00 00:00:00 Only Unassigned, TONY [id number] ity of [place] [facility] [id number] Rod as [id number] [address] 2022-02-07 2022-02-07 Orders Doctor VASILE [id number] Univers 00:00:00 00:00:00 Only Unassigned, TONY [id number] ity of [place] [facility] [id number] Rod as [id number] [address] 2022-02-05 2022-02-05 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 10 [id number] [facility] [id number] [address] 2022-02-05 2022-02-05 Outpatient Malika [facility]ULTMAN [facility] [id number] Univers 14:00:00 14:00:00 BONI itrad of [facility] 2022-01-31 2022-01-31 Outpatient Malika NAJERA [facility] [id number] Univers 10:00:00 16:26:30 [facility] garay o [facility] 2022-01-31 2022-01-31 [facility] [id number] Univers 10:00:00 16:26:30 Visit [facility] [id number] i ty of [place] [id number] [place] [facility] [phone] [address] OFFICE [facility] 2021-10-24 2021-10-24 Outpatient BEV ARMIJO [id number] Bev 00:00:00 00:00:00 ANASTACIO Seybol d 2021-09-06 2021-09-06 Outpatient BEV DURÁN [id number] Bev 10:00:00 10:00:00 TEE Seybol d 2021-08-27 2021-08-27 Outpatient TRUNG SPRINGER [id number] Bev 12:00:00 12:00:00 Seybol d 2021-08-20 2021-08-20 Outpatient BEV MIKE [id number] Bev 10:45:00 10:45:00 Seybol d 2021-08-20 2021-08-20 Outpatient BEV DURÁN [id number] Bev 00:00:00 00:00:00 TEE Seybol d 2021-08-14 2021-08-14 Outpatient BEV BERGER [id number] Bev 14:30:00 14:30:00 WALID Seybol d 2021-08-13 2021-08-13 Outpatient BEV DURÁN [id number] Bev 11:30:00 11:30:00 TEE Seybol d 2021-08-13 2021-08-13 Outpatient BEV OROZCO [id number] Bev 00:00:00 00:00:00 FRITZ Seybol d 2021-08-13 2021-08-13 Outpatient BEV DURÁN [id number] Bev 00:00:00 00:00:00 TEE Seybol d 2021-07-23 2021-07-23 Outpatient TRUNG SPRINGER [id number] Bev 13:45:00 13:45:00 Seybol d 2021-07-23 2021-07-23 Outpatient BEV DURÁN [id number] Bev 13:00:00 13:00:00 TEE Seybol d 2021-07-19 2021-07-19 Outpatient BEV MIKE [id number] Bev 15:00:00 15:00:00 Seybol d 2021-07-19 2021-07-19 Outpatient BEV MIKE [id number] Bev 14:00:00 14:00:00 Seybol d 2021-07-19 2021-07-19 Outpatient BEV DURÁN [id number] Bev 00:00:00 00:00:00 TEE Seybol d 2021-07-12 2021-07-12 Outpatient BEV MIKE [id number] Bev 11:30:00 11:30:00 Seybol d 2021-07-12 2021-07-12 Outpatient BEV MIKE [id number] Bev 10:30:00 10:30:00 Seybol d 2021-07-02 2021-07-02 Outpatient BEV ARMIJO [id number] Bev 00:00:00 00:00:00 ANASTACIO Seybol d 2021-06-29 2021-06-29 Outpatient LEROY RAJAN [id number] Bev 00:00:00 00:00:00 Seybol d 2021-06-26 2021-06-26 Outpatient BEV MIKE [id number] Bev 08:20:00 08:20:00 Seybol d 2021-06-25 2021-06-25 Outpatient BEV DURÁN [id number] Bev 14:30:00 14:30:00 TEE Seybol d 2021-06-06 2021-06-06 Outpatient BEV OROZCO [id number] Bev 00:00:00 00:00:00 FRITZ Seybol d 2021-06-05 2021-06-05 Outpatient BEV OROZCO [id number] Bev 00:00:00 00:00:00 FRITZ Seybol d 2021-06-04 2021-06-04 Outpatient LAB90 BEV MIKE [id number] Bev 10:25:00 10:25:00 Seybol d 2021-05-31 2021-05-31 Outpatient BEV OROZCO [id number] Bev 00:00:00 00:00:00 FRITZ Seybol d 2021-05-30 2021-05-30 Outpatient BEV OROZCOSEY [id number] Bev 11:15:00 11:15:00 FRITZ castañeda 2021-05-29 2021-05-29 Outpatient ZOFIABEV [id number] Bev 00:00:00 00:00:00 ANASTACIO castañeda 2021-02-20 2021-02-20 OFFICE STLMLC STLMLC [id number] Co mmon 00:00:00 00:00:00 VISIT EST Spir it PT LEVEL 3 - [facility] 2021-01-25 2021-01-25 (TEL) STLMLC STLMLC [id number] Co mmon 00:00:00 00:00:00 [facility] 2021-01-22 2021-01-22 (TEL) STLMLC STLMLC [id number] Co mmon 00:00:00 00:00:00 [facility] 2020-11-29 2020-11-29 OFFICE STLMLC STLMLC [id number] Co mmon 00:00:00 00:00:00 VISIT [facility] PT LEVEL 3 - [facility] 2020-11-15 2020-11-15 (TEL) STLMLC STLMLC [id number] Co mmon 00:00:00 00:00:00 [facility] 2020-10-12 2020-10-12 [id number] [place] 04:07:00 04:07:00 1211 Medical [facility] 2020-10-11 2020-10-11 Outpatient IHDE_G MMG MMG [id number] [place] 11:17:00 11:17:00 1202 da Medical [facility] 2020-10-10 2020-10-10 Outpatient IHDE_G MMG MMG [id number] [place] 04:43:00 04:43:00 1201 Medical [facility] 2020-10-10 2020-10-10 Jerad [facility] [place] - [id number] M atagor 00:00:00 00:00:00 Andi Salas MD: [facility] [address], [place] [address] , Ph. [phone] 2020-10-09 2020-10-09 NON-BILLAB STLMLC STLMLC [id number] Common 00:00:00 00:00:00 LE VISIT [facility] 2020-10-04 2020-10-04 Outpatient IHDE_G MMG MMG [id number] [place] 09:26:00 09:26:00 [facility] 2020-09-15 2020-09-15 (TEL) STLMLC STLMLC [id number] Co mmon 00:00:00 00:00:00 [facility] 2020-09-07 2020-09-07 NON-BILLAB STLMLC STLMLC [id number] Common 00:00:00 00:00:00 LE VISIT [facility] 2020-08-29 2020-08-29 (TEL) STLMLC STLMLC [id number] Co mmon 00:00:00 00:00:00 [facility] 2020-08-25 2020-08-25 NON-BILLAB STLMLC STLMLC [id number] Common 00:00:00 00:00:00 LE VISIT [facility] 2020-08-17 2020-08-17 OFFICE STLMLC STLMLC [id number] Co mmon 00:00:00 00:00:00 VISIT [facility] PT - CHI LEVEL [address] [place] [address] 2020-07-28 2020-07-28 OFFICE STLMLC STLMLC [id number] Co mmon 00:00:00 00:00:00 VISIT [facility] PT - CHI LEVEL [address] [place] [address] Results Test Description Test Time Test Comments Results Result Comments Source POCT GLUCOSE (AUTOMATED) 2022-08-27 17:04:11 Test Item Value Reference Range Interpretation Comme nts POCT GLU (test code = 5161308465) 157 mg/dL 70-110 H Lab Interpretation (test code = 99086-8) Abnormal [facility]2022-08-27 17:04:11 Test Item Value Reference Range Interpretation Comments POCT GLU (test code = [id number]) 157 mg/dL 70-110 H Lab Interpretation (test code = Abnormal 31909-2) [facility]
[2022-12-15] MEDS ORDERED: METHYLPREDNISOLONE 125 MG INJ ONE (01:04)
[2022-12-15] MEDS ORDERED: IPRATROPIUM BROM 0.5MG/2.5ML ONE (01:05)
[2022-12-15] MEDS ORDERED: NA CHLORIDE 0.9% 1,000 ML ONE ×2 (01:05→03:09)
[2022-12-15] MEDS ORDERED: ALBUTEROL 2.5 MG/3 ML NEB SOL ONE (01:05)
[2022-12-15 01:28] LABS: Arterial Blood Carboxyhemoglob 2.3 % (0-1.5); Blood Gas Oxyhemoglobin 73.2 % (94-97); Blood O2 Saturation 75.9 % (92-98.5)
[2022-12-15 01:38] LABS: Hematocrit 49.6 % (39.6-49.0); Lymphocytes % 7.9 % (15.3-44.8); MCV 89.2 fL (80-100); MPV 8.9 fL (7.6-11.3); RBC Red Blood Cell Count 5.55 M/uL (4.33-5.43)
[2022-12-15 01:45] LABS: Protime INR 1.08
[2022-12-15 01:55] LABS: Albumin 3.3 g/dL (3.4-5.0); Bilirubin Total 0.7 mg/dL (0.2-1.0); Potassium 3.9 mmol/L (3.5-5.1); Protein, Total 7.6 g/dL (6.4-8.2)
[2022-12-15 01:57] LABS: SARS-COV-2 RT PCR NEGATIVE (NEGATIVE)
[2022-12-15 02:04] LABS: Troponin High Sensitivity 7.6 pg/mL (<58.9)
--- NOTE | 2022-12-15 02:33 | ER ---
Nurse's Notes [facility] Name: Min Aly Age: 62 yrs Sex: Male : 1960 Arrival Date: 12/15/2022 Time: 00:39 Bed 6 Private MD: Diagnosis: Acute respiratory failure with hypoxia;COPD exacerbation;Viral respiratory infection Presentation: 12/15 00:54 Chief complaint: Patient states: "I have been feeling so sick I cannot eat. I am only tw5 drinking maybe a bottle of water a day and drinking those protein shakes." Spouse and/or significant other states: "He started feeling sick on , he went and saw the doc. They put him on medications, but he has only gotten worse.". Coronavirus screen: Vaccine status: Patient reports receiving the 2nd dose of the covid vaccine. Moderna. Ebola Screen: Patient negative for fever greater than or equal to 101.5 degrees Fahrenheit, and additional compatible Ebola Virus Disease symptoms Patient denies exposure to infectious person. Patient denies travel to an Ebola-affected area in the 21 days before illness onset. Initial Sepsis Screen: Does the patient meet any 2 criteria? RR > 20 per min. HR > 90 bpm. Yes Does the patient have a suspected source of infection? Yes: Productive cough/pneumonia If YES to both, name of provider notified: Kanwal Serrano MD Risk Assessment: Do you want to hurt yourself or someone else? Patient reports no desire to harm self or others. Onset of symptoms was December 13, 2022 at 08:00. 00:54 Method Of Arrival: Wheelchair tw5 00:54 Acuity: MARYBETH 2 tw5 Triage Assessment: 00:58 General: Appears uncomfortable, Behavior is appropriate for age. Respiratory: Reports tw5 shortness of breath at rest air hunger labored breathing Onset: The symptoms/episode began/occurred gradually, the patient has severe shortness of breath. Historical: - Allergies: 00:58 No Known Allergies; tw5 - Home Meds: 00:57 albuterol sulfate 90 mcg/actuation Inhl aepb 1 puff every 4 hours [Active]; Tresiba tw5 FlexTouch U-100 100 unit/mL (3 mL) subcutaneous inpn [Active]; Trelegy Ellipta 200-62.5-25 mcg inhalation dsdv 1 puff once daily [Active]; Humira subcutaneous [Active]; escitalopram oxalate 20 mg Oral tab 1 tab once daily [Active]; bupropion HBr 300 mg Oral [Active]; - PMHx: 00:57 COPD; Diabetes - NIDDM; Hypercholesterolemia; "30% lung capacity"; tw5 - PSHx: 00:57 Tonsillectomy; "Metal plate in my right leg"; tw5 - Immunization history:: Pneumococcal vaccine is not up to date, Flu vaccine is not up to date. - Social history:: Smoking status: Patient reports the use of cigarette tobacco products, smokes two packs cigarettes per day. Screenin:00 [facility] ED Fall Risk Assessment (Adult) History of falling in the last 3 months, ke1 including since admission No falls in past 3 months (0 pts) Confusion or Disorientation No (0 pts) Intoxicated or Sedated No (0 pts) Impaired Gait No (0 pts) Mobility Assist Device Used No (0 pt) Altered Elimination No (0 pt) Score/Fall Risk Level 0 - 2 = Low Risk. Abuse screen: Denies threats or abuse. Nutritional screening: No deficits noted. Tuberculosis screening: No symptoms or risk factors identified. Assessment: 01:00 Respiratory: Airway is patent Trachea midline Respiratory effort is labored, Breath ke1 sounds with rhonchi bilaterally. 01:00 Pain: Denies pain. Cardiovascular: Rhythm is sinus rhythm. ke1 01:30 Reassessment: Patient states symptoms have improved. ke1 02:45 Reassessment: Patient in CT scan. ke1 03:15 General: pt being placed on BiPAP by RT. as6 03:25 General: Berhane () [phone]. as6 03:50 Respiratory: Patient placed on BiPAP: Inspiratory Pressure: 16 Expiratory (EPAP) ke1 Pressure: 10 FiO2%: 30 Respiratory Rate: 18. Vital Signs: 00:54 BP 154 / 87; Pulse 133; Resp 28; Temp 98.6; Pulse Ox 84% on R/A; Weight 158.76 kg; tw5 Height 6 ft. 3 in. (190.50 cm); 02:14 BP 135 / 88; Pulse 135; Resp 26; Pulse Ox 98% on 5 lpm NC; Pain 0/10; ke1 03:14 BP 131 / 70; Pulse 128; Resp 30 S; Pulse Ox 97% on 5 lpm NC; as6 04:25 BP 112 / 76; Pulse 105; Resp 17; Temp 98.4; Pulse Ox 97% on BiPAP; Pain 0/10; ke1 00:54 Body Mass Index 43.75 (158.76 kg, 190.50 cm) tw5 ED Course: 00:39 Patient arrived in ED. jj6 00:41 Kanwal Serrano MD is Attending Physician. sd2 00:55 Cachorro Dawson, PAT is Primary Nurse. ke1 00:57 Triage completed. tw5 00:58 Arm band placed on. tw5 01:00 Bed in low position. Side rails up X 1. Side rails up X2. ke1 01:01 EKG done, by ED staff, reviewed by Kanwal Serrano MD. wm 01:15 COVID swab sent to lab. Flu and/or RSV swab sent to lab. wm 01:34 Inserted saline lock: 20 gauge in left antecubital area, using aseptic technique. ke1 01:36 BNP Sent. ke1 01:36 Troponin High Sensitivity Sent. ke1 01:36 COVID-19/FLU A+B Sent. ke1 01:36 Blood Culture Adult (2) Sent. ke1 01:36 CBC with Diff Sent. ke1 01:36 CMP Sent. ke1 01:36 Lactate w/ 2H reflex if indic. Sent. ke1 01:36 Protime (+inr) Sent. ke1 01:36 Ptt, Activated Sent. ke1 01:37 Urine Microscopic Only Sent. ke1 02:02 Chest Single View XRAY In Process Unspecified. EDMS 02:32 Eric Servin MD is Hospitalizing Provider. sd2 03:01 Chest For PE Angio CT In Process Unspecified. EDMS 04:29 No provider procedures requiring assistance completed. Patient admitted, IV remains in ke1 place. Administered Medications: 01:34 Drug: AtroVENT (ipratropium) Aerosol 0.5 mg Route: Inhalation; ke1 01:35 Drug: NS 0.9% 1000 ml Route: IV; Rate: 1 bolus; Site: left antecubital; ke1 01:35 Drug: SOLU-Medrol (methylPrednisoLONE) 125 mg Route: IVP; Site: left antecubital; ke1 01:35 Drug: Albuterol 5 mg Route: Inhalation; ke1 03:07 CANCELLED (Other Intervention Used): NS 0.9% 1000 ml IV at 1000 ml once la1 03:14 Drug: Tylenol 1000 mg Route: PO; as6 03:14 Drug: Magnesium Sulfate 1 grams Route: IVPB; Infused Over: 1 hrs; Site: left as6 antecubital; 03:14 Drug: NS 0.9% 500 ml Route: IV; Rate: bolus; Site: left antecubital; as6 Medication: 04:30 VIS not applicable for this client. ke1 Outcome: 02:32 Decision to Hospitalize by Provider. sd2 04:29 Admitted to Med/surg ke1 04:29 Condition: stable 04:29 Instructed on the need for admit. 04:32 Patient left the ED. 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
--- NOTE | 2022-12-15 02:33 | EDPHYS ---
Physician Documentation [facility] Name: Min Aly Age: 62 yrs Sex: Male : 1960 Arrival Date: 12/15/2022 Time: 00:39 Bed 6 Private MD: ED Physician Kanwal Serrano HPI: 12/15 00:52 This 62 yrs old Male presents to ER via Unassigned with complaints of Breathing sd2 Difficulty, Congestion, Cough. 00:52 62-year-old male presents with chief complaint of shortness of breath. provides sd2 most of the history and states that the patient initially started getting sick on . They called his doctor's office who called him in a Z-Lino, prednisone and Bromfed for him to take starting afternoon. The patient was taking these medications and initially felt better but then felt worse again yesterday. He is also had associated subjective fevers, productive cough of green sputum and congestion with loss of appetite. He states he has not drink much water but has been drinking protein shakes trying to keep up with his nutrition. He reports this feels similar to when he had pneumonia previously and required BiPAP. He was noted to be 84% on room air initially and was placed on 5 L nasal cannula with improvement to 92%.. Historical: - Allergies: 00:58 No Known Allergies; tw5 - Home Meds: 00:57 albuterol sulfate 90 mcg/actuation Inhl aepb 1 puff every 4 hours [Active]; Tresiba tw5 FlexTouch U-100 100 unit/mL (3 mL) subcutaneous inpn [Active]; Trelegy Ellipta 200-62.5-25 mcg inhalation dsdv 1 puff once daily [Active]; Humira subcutaneous [Active]; escitalopram oxalate 20 mg Oral tab 1 tab once daily [Active]; bupropion HBr 300 mg Oral [Active]; - PMHx: 00:57 COPD; Diabetes - NIDDM; Hypercholesterolemia; "30% lung capacity"; tw5 - PSHx: 00:57 Tonsillectomy; "Metal plate in my right leg"; tw5 - Immunization history:: Pneumococcal vaccine is not up to date, Flu vaccine is not up to date. - Social history:: Smoking status: Patient reports the use of cigarette tobacco products, smokes two packs cigarettes per day. ROS: 00:53 Eyes: Negative for injury, pain, redness, and discharge, ENT: Negative for injury, sd2 pain, and discharge, Cardiovascular: Negative for chest pain, palpitations, and edema. 00:53 MS/Extremity: Negative for injury and deformity, Skin: Negative for injury, rash, and discoloration, Neuro: Negative for headache, numbness and tingling. 00:53 Constitutional: Positive for fever, malaise, poor PO intake. 00:53 Respiratory: Positive for cough, dyspnea on exertion, shortness of breath, wheezing. 00:53 Abdomen/GI: Positive for anorexia, Negative for abdominal pain, nausea, vomiting, and diarrhea. Exam: 00:53 Constitutional: This is a well developed, well nourished patient who is awake, alert, sd2 and in moderate distress. Head/Face: Normocephalic, atraumatic. Eyes: EOMI, normal conjunctiva bilaterally Chest/axilla: Normal chest wall appearance and motion. Nontender with no deformity. Cardiovascular: Regular rate and rhythm with a normal S1 and S2. No gallops, murmurs, or rubs. 2+ distal pulses. 00:53 Respiratory: Expiratory wheezing noted bilaterally in all lung reyez with diminished BS bilaterally, subcostal retractions present with tachypnea Abdomen/GI: Soft, non-tender, with normal bowel sounds. No guarding or rebound. No evidence of tenderness throughout. Skin: Warm, dry with normal turgor. Normal color with no rashes, no lesions, and no evidence of cellulitis. MS/ Extremity: Pulses equal, no cyanosis. Neurovascular intact. Full, normal range of motion. Ambulatory without difficulty. Psych: Awake, alert, with orientation to person, place and time. Behavior, mood, and affect are within normal limits. 01:01 ECG was reviewed by the Attending Physician. Sinus tachycardia, rate 129, no STEMI sd2 criteria, wandering baseline present Vital Signs: 00:54 BP 154 / 87; Pulse 133; Resp 28; Temp 98.6; Pulse Ox 84% on R/A; Weight 158.76 kg; tw5 Height 6 ft. 3 in. (190.50 cm); 02:14 BP 135 / 88; Pulse 135; Resp 26; Pulse Ox 98% on 5 lpm NC; Pain 0/10; ke1 03:14 BP 131 / 70; Pulse 128; Resp 30 S; Pulse Ox 97% on 5 lpm NC; as6 04:25 BP 112 / 76; Pulse 105; Resp 17; Temp 98.4; Pulse Ox 97% on BiPAP; Pain 0/10; ke1 00:54 Body Mass Index 43.75 (158.76 kg, 190.50 cm) tw5 MDM: 00:42 Patient medically screened. sd2 00:53 Differential diagnosis: Differential diagnosis includes but is not limited to: ACS, sd2 DVT/PE, pneumothorax, dissection, musculoskeletal, anxiety, anemia, electrolyte abnormality, pneumonia, CHF, COPD among others. Data reviewed: vital signs, nurses notes. 00:58 I considered the following discharge prescriptions or medication management in the 2 emergency department Medications were administered in the Emergency Department. See MAR. 00:58 Care significantly affected by the following chronic conditions: Diabetes, Chronic sd2 Obstructive Pulmonary Disease. 01:01 Independent interpretation of the following test(s) in the Emergency Department EKG: sd2 See my EKG interpretation above desk monitor: rate is 129 beats/min, Rhythm is sinus tachycardia, with no ectopy, Interpretation: tachycardia, Rhythm Strip Interpretation Rate: 129 bpmBPM Rhythm: regular. 02:30 Data reviewed: lab test result(s), EKG, radiologic studies. Consideration of sd2 Admission/Observation Patient was admitted/placed on observation. Management of patient was discussed with the following: Hospitalist: JUDIE Wolf. Historians other than the Patient: Spouse/Significant Other: Provided HPI. Counseling: I had a detailed discussion with the patient and/or guardian regarding: the historical points, exam findings, and any diagnostic results supporting the discharge/admit diagnosis, lab results, radiology results, the need for further work-up and treatment in the hospital. ED course: Labs and imaging reviewed. Pt requiring O2 support via NC. Will admit for further management. CTA pending to rule out PE at this time. . 12/15 00:52 Order name: Blood Culture Adult (2) 12/15 00:52 Order name: CBC with Diff; Complete Time: 01:52 12/15 00:52 Order name: CMP; Complete Time: 02:26 12/15 00:52 Order name: Lactate w/ 2H reflex if indic.; Complete Time: 02:26 sd2 12/15 00:52 Order name: Protime (+inr); Complete Time: 01:52 sd2 12/15 00:52 Order name: Ptt, Activated; Complete Time: 01:52 sd2 12/15 00:52 Order name: Urine Microscopic Only; Complete Time: 04:23 sd2 12/15 00:52 Order name: ABG; Complete Time: 01:39 sd2 12/15 00:52 Order name: Procalcitonin; Complete Time: 02:26 sd12/15 00:53 Order name: COVID-19/FLU A+B; Complete Time: 02:26 sd12/15 00:57 Order name: Troponin High Sensitivity; Complete Time: 02:26 sd12/15 00:57 Order name: BNP; Complete Time: 02:26 sd12/15 01:35 Order name: Glucose, Ancillary Testing; Complete Time: 01:39 EDMS 12/15 02:46 Order name: Urine Dipstick-Ancillary; Complete Time: 02:55 EDMS 12/15 00:52 Order name: Chest Single View XRAY 12/15 00:52 Order name: EKG; Complete Time: 00:52 sd2 12/15 00:52 Order name: Accucheck; Complete Time: 01:36 sd12/15 00:52 Order name: Cardiac monitoring; Complete Time: 02:33 sd12/15 00:52 Order name: EKG - Nurse/Tech; Complete Time: 01:01 sd12/15 00:52 Order name: IV Saline Lock - Large Bore; Complete Time: 01:36 sd12/15 02:28 Order name: Chest For PE Angio CT 12/15 03:06 Order name: BIPAP la1 12/15 00:52 Order name: Labs collected and sent; Complete Time: 01:36 sd12/15 00:52 Order name: O2 Per Protocol; Complete Time: 01:36 sd12/15 00:52 Order name: O2 Sat Monitoring; Complete Time: 01:36 sd12/15 00:52 Order name: Urine Dipstick-Ancillary (obtain specimen); Complete Time: 02:45 sd2 12/15 00:52 Order name: Vital Signs; Complete Time: 02:26 sd2 Administered Medications: 01:34 Drug: AtroVENT (ipratropium) Aerosol 0.5 mg Route: Inhalation; ke1 01:35 Drug: NS 0.9% 1000 ml Route: IV; Rate: 1 bolus; Site: left antecubital; ke1 01:35 Drug: SOLU-Medrol (methylPrednisoLONE) 125 mg Route: IVP; Site: left antecubital; ke1 01:35 Drug: Albuterol 5 mg Route: Inhalation; ke1 03:07 CANCELLED (Other Intervention Used): NS 0.9% 1000 ml IV at 1000 ml once la1 03:14 Drug: Tylenol 1000 mg Route: PO; as6 03:14 Drug: Magnesium Sulfate 1 grams Route: IVPB; Infused Over: 1 hrs; Site: left as6 antecubital; 03:14 Drug: NS 0.9% 500 ml Route: IV; Rate: bolus; Site: left antecubital; as6 Disposition: 02:30 Critical Care:. sd2 Disposition Summary: 12/15/22 02:32 Hospitalization Ordered Hospitalization Status: Inpatient Admission sd2 Provider: Eric Servin sd2 [facility] sd2 Condition: Stable sd2 Problem: new sd2 Symptoms: have improved sd2 Bed/Room [facility] Room Assignment: 408(12/15/22 03:40) tw5 Diagnosis - Acute respiratory failure with hypoxia sd2 - COPD exacerbation sd2 - Viral respiratory infection sd2 Forms: - Medication Reconciliation Form sd2 - SBAR form sd2 Critical care time excluding procedures: 02:30 Critical care time: Bedside Care: 20 minutes, Consultation: 5 minutes, Family sd2 Intervention: 10 minutes. Total time: 35 minutes Signatures: Dispatcher [employer] EDMS Min Carrillo, RANDOLPH RICHARDSP-Uyen Honeycutt tw5 Chris Ponce RN RN as6 Cachorro Dawson RN RN ke1 Kanwal Serrano MD MD sd2 Corrections: (The following items were deleted from the chart) 03:07 03:01 NS 0.9% 1000 ml IV at 1000 ml once ordered. la1 la1 03:40 02:32 sd2 tw5
[2022-12-15 02:46] LABS: Urine Blood Negative (Negative); Urine Glucose 2+ (Negative); Urine Protein 1+ (Negative); Urine Specific Gravity 1.025 (1.005-1.030)
[2022-12-15 03:01] LABS: Urine Bacteria <20 /HPF (<20); Urine Mucus Slight /HPF (None Seen); Urine RBC <5 /HPF (None Seen)
[2022-12-15] MEDS ORDERED: MAGNESIUM SULFATE 1 gm IVPB 1 GM/100 ML BAG IV ONE (03:12)
[2022-12-15] MEDS ORDERED: ACETAMINOPHEN 500 MG TAB ONE (03:12)
--- NOTE | 2022-12-15 03:33 | P.HP ---
Certification for Inpatient Patient admitted to: Inpatient With expected LOS: >2 Midnights Patient will require the following post-hospital care: None Practitioner: I am a practitioner with admitting privileges, knowledge of patient current condition, hospital course, and medical plan of care. Services: Services provided to patient in accordance with Admission requirements found in Title 42 Section 412.3 of the Code of Federal Regulations <Min Carrillo - Last Filed: 12/15/22 03:28> Patient History Date of Service: 12/15/22 Reason for admission: Hypoxic respiratory failure History of Present Illness: 62-year-old male with history of COPD, diabetes mellitus type 2insulin- dependent, hypertension, hyperlipidemia presents emergency department with 3 to 4 days of worsening dyspnea, he was seen by his PCP late last week and prescribed Zithromax, prednisone without any significant improvement in his symptoms. He presented to the emergency department and respiratory distress room air saturations around 84%, he was tachycardic, tachypneic. Labs were significant for mild leukocytosis white blood cell count 13 sodium 133 glucose 143 procalcitonin 0.24 high-sensitivity troponin 7.6 lactic acid 1.0 VBG showed pH of 7.4, PCO2 of 44.3. Provider wished to admit for further evaluation and management of acute on chronic hypoxic respiratory failure secondary to COPD with exacerbation. CT PE protocol ordered today to rule out pulm embolism, pneumonia. Chest x-ray was negative for any acute findings. - Past Medical/Surgical History Diabetic: Yes -: COPD -: Insulin-dependent diabetes -: PSORIASIS -: HEPATITIS C -: Hyperlipidemia -: TONSILLECTOMY -: METAL PLATE TO RIGHT LEG D/T FRACTURE -: HEMORRHOIDECTOMY Psychosocial/ Personal History: Patient lives at home with his - Family History Family History: Reviewed- Non-Contributory - Social History Smoking Status: Current every day smoker Counseled patient to stop smoking for: less than 10 minutes Smoking therapy provided: Yes Alcohol use: No CD- Drugs: No Caffeine use: Yes <Min Carrillo - Last Filed: 12/15/22 03:28> Date of Service: 12/15/22 <Eric Servin - Last Filed: 12/15/22 18:59> Allergies No Known Drug Allergies Allergy (Verified 08/17/20 13:43) Unknown Home Medications: RX: Bupropion *Xl* [Wellbutrin XL*] 300 mg PO DAILY 02/08/19 RX: Escitalopram [Lexapro*] 20 mg PO DAILY 02/08/19 Dapagliflozin Propanediol [Farxiga] 10 mg PO DAILY 08/17/20 Insulin Degludec [Tresiba] 14 unit SQ DAILY 08/17/20 Review of Systems 10-point ROS is otherwise unremarkable Respiratory: Cough, Shortness of Breath, SOB with Excertion, Sputum, Wheezing <Min Carrillo - Last Filed: 12/15/22 03:28> Physical Examination - Physical Exam General: Alert, In no apparent distress, Oriented x3 HEENT: Atraumatic, PERRLA, Mucous membr. moist/pink, EOMI, Sclerae nonicteric Neck: Supple, 2+ carotid pulse no bruit, No LAD, Without JVD or thyroid abnormality Respiratory: Clear to auscultation bilaterally, Expiratory wheezes, Inspiratory wheezes, Rhonchi/gurgles, Other (Moderate respiratory distress) Cardiovascular: Regular rate/rhythm, Normal S1 S2 Capillary refill: <2 Seconds Gastrointestinal: Normal bowel sounds, No tenderness Musculoskeletal: No tenderness Integumentary: No rashes Neurological: Normal gait, Normal speech, Normal strength at 5/5 x4 extr, Normal tone, Normal affect Lymphatics: No axilla or inguinal lymphadenopathy - Studies Laboratory Data (last 24 hrs) 12/15/22 01:10: PT 11.9, INR 1.08, APTT 29.8 12/15/22 01:10: Sodium 133 L, Potassium 3.9, BUN 22 H, Creatinine 0.79, Glucose 143 H, Total Bilirubin 0.7, AST 15, ALT 19, Alkaline Phosphatase 107 12/15/22 01:10: WBC 13.00 H, Hgb 16.5, Hct 49.6 H, Plt Count 223 <Min Carrillo - Last Filed: 12/15/22 03:28> - Studies Laboratory Data (last 24 hrs) 12/15/22 01:10: PT 11.9, INR 1.08, APTT 29.8 12/15/22 01:10: Sodium 133 L, Potassium 3.9, BUN 22 H, Creatinine 0.79, Glucose 143 H, Total Bilirubin 0.7, AST 15, ALT 19, Alkaline Phosphatase 107 12/15/22 01:10: WBC 13.00 H, Hgb 16.5, Hct 49.6 H, Plt Count 223 <Eric Servin - Last Filed: 12/15/22 18:59> Assessment and Plan - Plan Assessment: Acute on chronic hypoxic respiratory failure secondary to COPD with exacerbation Diabetes mellitus type 2insulin-dependent Hyperlipidemia SIRS criteria Plan: Acute on chronic hypoxic respiratory failure secondary to COPD with exacerbation: Placed on BiPAP due to respiratory distress, nonhypercapnic. Continue IV steroids, nebs, ICS. Pulmonology consult in place. Continuous pulse ox ordered. Improvement over the course next [address] PE protocol ordered to rule out pulmonary embolism/assess further for infectious process. Started on empiric Levaquin, sputum culture ordered. Blood cultures obtained. Diabetes mellitus type 2insulin-dependent: ACHS Accu-Chek, sliding scale insulin. Patient takes Tresiba 30 units daily at home. A1c tomorrow. Hyperlipidemia: Continue home med SIRS criteria: SIRS criteria present including leukocytosis, tachycardia, tachypnea. At this time no source of infection has been confirmed, started on empiric Levaquin. CT pending for further evaluation of pneumonia/PE. DVT PPX: Lovenox Code status: full Discharge Plan: Home Plan to discharge in: 72 Hours - Advance Directives Does patient have a Living Will: No Does patient have a Durable POA for Healthcare: No - Code Status/Comfort Care Code Status Assessed: Yes (Full code) Critical Care: No Time Spent Managing Pts Care (In Minutes): 70 <Min Carrillo - Last Filed: 12/15/22 03:28> Physician Review: Patient Assessed, Agree with Above Assessment and Plan <Eric Servin - Last Filed: 12/15/22 18:59>
[2022-12-15] MEDS ORDERED: BENZONATATE 100 MG CAP PO PRN (04:40)
[2022-12-15] MEDS ORDERED: ONDANSETRON 4 MG/2 ML VIAL IV PRN (04:40)
[2022-12-15] MEDS ORDERED: ACETAMINOPHEN 500 MG TAB PO PRN (04:40)
[2022-12-15] MEDS ORDERED: Levofloxacin 750mg IV 750 MG/150 ML BAG IV SCH (05:00)
[2022-12-15 05:01] VITALS: BMI 42.7
[2022-12-15] MEDS: INSULIN -REGULAR HUMAN 50 UNIT/0.5 ML ML SQ SCH ×4 (07:30→22:17)
[2022-12-15] MEDS: ARFORMOTEROL TARTRATE 15 MCG/2 ML VIAL.NEB NEB SCH ×2 (08:54→19:15)
[2022-12-15] MEDS: ALBUTEROL 2.5 MG/3 ML NEB SOL NEB PRN ×3 (08:54→19:15)
[2022-12-15] MEDS ORDERED: POTASSIUM CL SA 10 MEQ TAB PO ONE (09:00)
[2022-12-15] MEDS ORDERED: INFLUENZA VACCINE (for 6+ mo) 0.5 ML DOSE IMVAC ONE (09:00)
[2022-12-15] MEDS: ENOXAPARIN 40 MG/0.4 ML SQ SCH (09:18)
[2022-12-15] MEDS: METHYLPREDNISOLONE 40 MG INJ IV SCH ×2 (09:18→17:00)
--- NOTE | 2022-12-15 10:43 | P.CNS ---
Date of Consult: 12/15/22 Reason for Consult: Respiratory failure Chief Complaint: Hypoxic respiratory failure History of Present Illness: Patient is 62 years of age with a history of COPD metabolic syndrome admitted with 3 to 4 days of worsening dyspnea he was seen by his PCP was prescribed steroids and Zithromax continued to get worse ended up here in the emergency room he still smokes patient does take Trelegy and albuterol at home has been coughing up some productive phlegm. Is its been quite some while since he had an exacerbation Allergies No Known Drug Allergies Allergy (Verified 08/17/20 13:43) Unknown Home Medications: Bupropion *Xl* [Wellbutrin XL*] 300 mg PO DAILY 02/08/19 Escitalopram [Lexapro*] 20 mg PO DAILY 02/08/19 Dapagliflozin Propanediol [Farxiga] 10 mg PO DAILY 08/17/20 Insulin Degludec [Tresiba] 14 unit SQ DAILY 08/17/20 - Past Medical/Surgical History Diabetic: Yes -: COPD -: Insulin-dependent diabetes -: PSORIASIS -: HEPATITIS C -: Hyperlipidemia -: TONSILLECTOMY -: METAL PLATE TO RIGHT LEG D/T FRACTURE -: HEMORRHOIDECTOMY Psychosocial/ Personal History: Patient lives at home with his - Social History Smoking Status: Current every day smoker Alcohol use: No CD- Drugs: No Caffeine use: Yes Place of Residence: Home Review of Systems 10-point ROS is otherwise unremarkable General: Malaise Respiratory: Cough, Shortness of Breath Physical Examination Temp Pulse Resp BP Pulse Ox 97.9 F 102 H 24 H 105/60 92 12/15/22 08:00 12/15/22 08:00 12/15/22 08:00 12/15/22 08:00 12/15/22 08:00 General: Alert, Oriented x3 Respiratory: Expiratory wheezes Cardiovascular: No edema, Regular rate/rhythm, Normal S1 S2 Gastrointestinal: Normal bowel sounds, Soft and benign Musculoskeletal: No clubbing, No swelling, No warmth Integumentary: No breakdown Laboratory Data (last 24 hrs) 12/15/22 01:10: PT 11.9, INR 1.08, APTT 29.8 12/15/22 01:10: Sodium 133 L, Potassium 3.9, BUN 22 H, Creatinine 0.79, Glucose 143 H, Total Bilirubin 0.7, AST 15, ALT 19, Alkaline Phosphatase 107 12/15/22 01:10: WBC 13.00 H, Hgb 16.5, Hct 49.6 H, Plt Count 223 - Problems (1) Respiratory failure Current Visit: Yes Status: Acute Plan: Patient is 62 years of age COPD active smoker admitted with an exacerbation respiratory distress hypoxemia chest x-ray no pneumonia or pulmonary embolism White count is mildly elevated so is his procalcitonin nonspecific changes he failed outpatient therapy does take Trelegy and albuterol at home currently doing well on 94% on 2 L changed to p.o. levofloxacin and p.o. prednisone evaluate for home O2 counseled not to smoke possible discharge 1 to 2 days Qualifiers: Chronicity: acute on chronic
[2022-12-15] MEDS: predniSONE 20 MG TAB PO SCH (22:17)
[2022-12-16] MEDS: METHYLPREDNISOLONE 40 MG INJ IV SCH ×2 (01:14→10:13)
[2022-12-16] MEDS: ALBUTEROL 2.5 MG/3 ML NEB SOL NEB PRN (01:20)
[2022-12-16 04:00] LABS: Hematocrit 44.7 % (39.6-49.0); Lymphocytes % 8.9 % (15.3-44.8); MCV 89.9 fL (80-100); MPV 9.6 fL (7.6-11.3); RBC Red Blood Cell Count 4.97 M/uL (4.33-5.43)
[2022-12-16 04:03] LABS: Magnesium 2.8 mg/dL (1.6-2.4); Potassium 4.3 mmol/L (3.5-5.1)
[2022-12-16] MEDS: ARFORMOTEROL TARTRATE 15 MCG/2 ML VIAL.NEB NEB SCH (08:00)
[2022-12-16] MEDS ORDERED: levoFLOXacin 750 MG TAB PO SCH (09:00)
[2022-12-16 09:49] VITALS: O2SAT 90
[2022-12-16] MEDS: INSULIN -REGULAR HUMAN 50 UNIT/0.5 ML ML SQ SCH ×2 (10:12→12:22)
[2022-12-16] MEDS: predniSONE 20 MG TAB PO SCH (10:13)
[2022-12-16] MEDS: ENOXAPARIN 40 MG/0.4 ML SQ SCH (10:13)
[2022-12-16 11:50] VITALS: TEMP 97.4
--- NOTE | 2022-12-16 12:17 | P.PN ---
Subjective Date of Service: 12/16/22 Chief Complaint: COPD exacerbation Subjective: Improving (Patient is improving still complaining of dyspnea on exertion and mild desat) Review of Systems General: Weakness Respiratory: Shortness of Breath Physical Examination - Vital Signs Temperature: 97.4 F Blood Pressure: 123/76 Pulse: 99 Respirations: 18 Pulse Ox (%): 90 - Physical Exam General: Alert, In no apparent distress, Oriented x3 Respiratory: Clear to auscultation bilaterally, Diminished Cardiovascular: No edema, Regular rate/rhythm Assessment And Plan - Current Problems (Diagnosis) (1) Respiratory failure Current Visit: Yes Status: Acute Plan: Patient is 62 years of age admitted with COPD exacerbation respiratory failure he is gradually improving he will qualify for home O2 stable for discharge continue with prednisone 10 mg twice a day no antibiotics needed continue with trilogy nebulizers follow-up with me in 2-week Qualifiers: Chronicity: acute on chronic Physician Review: Patient Assessed, Agree with Above Assessment and Plan
--- NOTE | 2022-12-16 12:32 | RAD REPORT ---
EXAM DESCRIPTION: CT - Chest For Pe Angio - 12/15/2022 6:39 am CLINICAL HISTORY: 62 years, Male, Hypoxia, tachycardia COMPARISON: 01/08/2021 TECHNIQUE: Multiple transaxial tomograms of the chest were obtained from the lung apices through the lung bases utilizing 2 mm slice thickness at 2 mm interval reconstruction after the administration o f large bolus of IV contrast for complete opacification of the pulmonary arteries. Subsequent 3-D maximum intensity projection images were generated in the coronal and sagittal plane f or review. This exam was performed according to our departmental dose-optimization protocol, which includes auto mated exposure control, adjustment of the mA and/or kV according to patient size and/or use of iterat basia reconstruction technique. FINDINGS: Images are comprised by breathing motion artifact. The lungs parenchyma demonstrate questionable tiny tree-in-bud nodularities within the upper lobes mi nimal bronchial thickening perihilar aspect upper and lower lobes bilaterally correspond to most like ly to infection/inflammation. No masses, nodules and/or consolidations are identified. The trachea mainstem bronchus demonstrate to be normal. There is no significant pericardial or pleura l effusions. The thoracic aorta demonstrate to be within normal limits. No evidence for dissection/or aneurysm. Th e heart is normal in size. No evidence for right ventricular strain. There are prominent mediastinal and hilar lymph nodes, largest one azygos esophageal recess measuring 1.1 cm on image 92, most likely reactive in nature. The axillary regions demonstrate to be clear. Pulmonary arteries demonstrate to be normal, no intraluminal defect are seen that would suggest pulmo nary embolus. The bone windows demonstrate no significant skeletal lesions. The upper abdomen demonstrate exophytic upper pole simple renal cyst. No follow-up is recommended. IMPRESSION: Images are comprised by breathing motion artifact. Tiny tree-in-bud nodularities within the upper lobes with minimal bronchial thickening perihilar aspe ct upper and lower lobes bilaterally correspond to most likely to infection/inflammation. Prominent mediastinal and hilar lymph nodes, most likely reactive in nature. Electronically signed by: Marques Lewis MD 12/15/2022 3:33 AM MICA WASHER GLUER Due to temporary technical issues with the PACS/Fluency reporting system, reports are being signed by the in house radiologists without review as a courtesy to insure prompt reporting. The interpreting radiologist is fully responsible for the content of the report.
--- NOTE | 2022-12-16 12:42 | RAD REPORT ---
EXAM DESCRIPTION: RAD - Chest Single View - 12/15/2022 2:00 am CLINICAL HISTORY: 62 years Male SOB COMPARISON: None. FINDINGS: Lung volumes adequate. Cardiac silhouette is normal. No pneumothorax. No large pleural effusion. No focal consolidation. Bilateral interstitial thickening. No acute bony finding. Chronic appearing deformities of the right sixth and seventh posterior ribs. IMPRESSION: Bilateral interstitial thickening. No focal consolidation. Electronically signed by: Love Hamilton MD 12/15/2022 2:10 AM BROKERAGE COORDINATOR Due to temporary technical issues with the PACS/Fluency reporting system, reports are being signed by the in house radiologists without review as a courtesy to insure prompt reporting. The interpreting radiologist is fully responsible for the content of the report.
--- NOTE | 2022-12-16 15:51 | P.DS ---
Discharge Date: 12/16/22 Disposition: ROUTINE DISCHARGE Discharge Condition: GOOD Reason for Admission: COPD exacerbation Brief History of Present Illness: 62-year-old male with history of COPD, diabetes mellitus type 2insulin- dependent, hypertension, hyperlipidemia presents emergency department with 3 to 4 days of worsening dyspnea, he was seen by his PCP late last week and prescribed Zithromax, prednisone without any significant improvement in his symp toms. He presented to the emergency department and respiratory distress room air saturations around 84%, he was tachycardic, tachypneic. Labs were significant for mild leukocytosis white blood cell count 13 sodium 133 glucose 143 procalcitonin 0.24 high-sensitivity troponin 7.6 lactic acid 1.0 VBG showed pH of 7.4, PCO2 of 44.3. Provider wished to admit for further evaluation and management of acute on chronic hypoxic respiratory failure secondary to COPD with exacerbation. CT PE protocol ordered today to rule out pulm embolism, pneumonia. Chest x-ray was negative for any acute findings. Hospital Course: Patient is clinically doing well. Respiratory status has improved. Patient wanted to go home with home oxygen. This is being arranged at this time. At this time patient is stable for discharge. Continue with steroids and trilogy per pulmonary. DuoNebs as needed. At this time patient is stable for discharge. Vital Signs/Physical Exam: Temp Pulse Resp BP Pulse Ox 97.4 F 99 H 18 123/76 90 L 12/16/22 12:18 12/16/22 12:18 12/16/22 12:18 12/16/22 12:18 12/16/22 12:18 General: Alert, In no apparent distress, Oriented x3 Laboratory Data at Discharge: WBC 11.00 K/uL (4.3-10.9) H 12/16/22 02:34 Hgb 15.0 g/dL (13.6-17.9) D 12/16/22 02:34 Hct 44.7 % (39.6-49.0) 12/16/22 02:34 Plt Count 211 K/uL (152-406) 12/16/22 02:34 PT 11.9 SECONDS (9.5-12.5) 12/15/22 01:10 INR 1.08 12/15/22 01:10 APTT 29.8 SECONDS (24.3-36.9) 12/15/22 01:10 Sodium 137 mmol/L (136-145) D 12/16/22 02:34 Potassium 4.3 mmol/L (3.5-5.1) 12/16/22 02:34 BUN 24 mg/dL (7-18) H 12/16/22 02:34 Creatinine 0.78 mg/dL (0.70-1.30) 12/16/22 02:34 Glucose 253 mg/dL (74-106) H 12/16/22 02:34 Magnesium 2.8 mg/dL (1.6-2.4) H 12/16/22 02:34 Total Bilirubin 0.7 mg/dL (0.2-1.0) 12/15/22 01:10 AST 15 U/L (15-37) 12/15/22 01:10 ALT 19 U/L (16-61) 12/15/22 01:10 Alkaline Phosphatase 107 U/L (45-117) 12/15/22 01:10 Home Medications: Bupropion *Xl* [Wellbutrin XL*] 300 mg PO DAILY 02/08/19 Escitalopram [Lexapro*] 20 mg PO DAILY 02/08/19 Dapagliflozin Propanediol [Farxiga] 10 mg PO DAILY 08/17/20 Insulin Degludec [Tresiba] 14 unit SQ DAILY 08/17/20 Fluticasone/Umeclidin/Vilanter [Trelegy Ellipta 200-62.5-25] 1 each IH DAILY #1 inh 12/16/22 Ipratropium/Albuterol Sulfate [Iprat-Albut 0.5-3(2.5) mg/3 ml] 3 ml NEB Q6H PRN #60 amp 12/16/22 predniSONE [Deltasone*] 10 mg PO BID #30 tab 12/16/22 New Medications: predniSONE [Deltasone*] 10 mg PO BID #30 tab Ipratropium/Albuterol Sulfate [Iprat-Albut 0.5-3(2.5) mg/3 ml] 3 ml NEB Q6H PRN #60 amp PRN Reason: dyspnea Fluticasone/Umeclidin/Vilanter [Trelegy Ellipta 200-62.5-25] 1 each IH DAILY #1 inh Physician Discharge Instructions: -DC IV and DC home -Follow-up with PCP in 1 to 2 weeks -Follow-up with Pulmonary in 1 to 2 weeks -Please call Dr. Guerrier at [phone] if any questions regarding hospital stay -Please call nursing station at [phone] if any nursing or medication questions -Return to the emergency room if symptoms worsen Diet: AHA Activity: Fall precautions Time spent managing pt's care (in minutes): 35
[2022-12-16 15:53] VITALS: BP 115/72
--- NOTE | 2022-12-24 17:42 | EKG ---
Test Date: 2022-12-15 Test Time: 00:59:16 Muffle Operator: MEASUREMENT RESULTS: Intervals: Rate: 129 AR: 154 QRSD: 82 QT: 298 QTc: 436 [place]: P: 58 AR: 154 QRS: 99 T: 78 INTERPRETIVE STATEMENTS: Sinus tachycardia Rightward axis Borderline ECG Compared to ECG 08/01/2021 13:27:19 Sinus rhythm no longer present Myocardial infarct finding no longer present Electronically Signed On 12-24-22 17:24:56 INDUSTRIAL SAF[employer]Y AND HEALTH MANAGER by Jeff Mitchell
== END 2022-12-16 17:25 | disposition home or self-care (01) | DRG 871 ==
LOC: ER 00:37 → ERHOLD 03:21 → 4TH 03:42
PROVIDERS: ADMIT Internal Medicine; ATTEND Hospitalist
PROC: 5A09457 Assistance with Respiratory Ventilation, 24-96 Consecutive Hours, Continuous Positive Airway Pressure (ICD-10-PCS; principal; 2022-12-15)
DX: A41.9 Sepsis, unspecified organism (principal); J18.9 Pneumonia, unspecified organism; J96.21 Acute and chronic respiratory failure with hypoxia; J44.1 Chronic obstructive pulmonary disease with (acute) exacerbation; J44.0 Chronic obstructive pulmonary disease with (acute) lower respiratory infection; R65.20 Severe sepsis without septic shock; I10 Essential (primary) hypertension; E78.5 Hyperlipidemia, unspecified; E11.9 Type 2 diabetes mellitus without complications; F17.210 Nicotine dependence, cigarettes, uncomplicated; Z23 Encounter for immunization; Z79.4 Long term (current) use of insulin; Z79.52 Long term (current) use of systemic steroids; Z79.899 Other long term (current) drug therapy; Z20.822 Contact with and (suspected) exposure to COVID-19
CPT/HCPCS: 0240U; 36415; 71045; 71275; 80048; 80053; 81003; 81015; 82805; 82947; 83036; 83605; 83735; 83880; 84145; 84484; 85025; 85610; 85730; 87040; 90471; 93005; 94640; 94660; 94760; 96374; 96375; 99285; J1650; J1815; J2920; J2930; J3475; J7030; J7512; J7605; J7613; J7644; Q2035; Q9967